=== PATIENT | male | born 1960 | race Two or more races ===

== ENCOUNTER 2017-09-27 13:18 | Inpatient (IN) | payer MEDICAID ==
[2017-09-27] MEDS ORDERED: Sodium Chloride 0.9% 10 ML Syringe FLUSH PRN (13:21)
[2017-09-27] MEDS ORDERED: Zolpidem 5 MG Tab PO PRN (13:42)
[2017-09-27] MEDS ORDERED: Potassium Chloride 10% 20 MEQ/15 ML Soln 15 ML UD Cup PO PRN (13:42)
[2017-09-27] MEDS ORDERED: Lactated Ringers 1,000 ML IV SCH ×3 (13:45→16:45)
[2017-09-27] MEDS ORDERED: Insulin Regular, Human 100 Units/ML 3 ML Vial IV ONE (14:22)
[2017-09-27] MEDS: amLODIPine 10 MG Tab PO SCH (14:31)
[2017-09-27] MEDS ORDERED: Heparin Sodium/D5W 25,000 UNITS/500 ML BAG IV SCH (16:00)
[2017-09-27] MEDS ORDERED: Heparin Sodium 5,000 Units/ML Vial IVPUSH ONE (16:05)
[2017-09-27] MEDS ORDERED: Morphine 4 MG/ML Syringe IV PRN (17:36)
[2017-09-27] MEDS ORDERED: LORazepam 2 MG/ML MDV IV PRN (17:36)
[2017-09-27] MEDS ORDERED: Labetalol 20 MG/4 ML Syringe IVPUSH PRN (17:36)
[2017-09-27] MEDS ORDERED: Nitroglycerin 0.4 MG Tab.SL SL PRN (17:36)
--- NOTE | 2017-09-27 18:15 | PCM.HP ---
H&P History of Present Illness - General Date of Service: 09/27/17 Admit Problem/Dx: Admission Diagnosis/Problem Admission Diagnosis/Problem Diabetic ketoacidosis without coma sent over from clinic after presenting for routine follow up but with symptoms prompting further evaluation. Noted to have severely elevated glucose at 900+. no prior hx of DM. ketones in urine. patient weaker and noted severe increase in thirst and urination after started a steroid burst for sudden onset urticaria. 5 day course with last day being today. resolving rash, but he did not take todays dose. hx of hep c carrier being considered for currative therapy. no etoh or drug use. denies any other medications other than his perscriptions. has not traveled in the last 3 months or had outside visitors. no change in living or work environment. no fevers or chills. no cough or congestion. no abd, flank, epigastric, chest, neck, jaw, muscle or arm pain. no falls. no headaches. no blurred vision. no diarrhea, blood/black stools, n/v, abd distension, change in color of urine or stool. no burning with urination. no wounds or sores other than an ingrown hair on his left inner thigh. no change in diet or other ill contacts. hx of right hemicolectomy a few years back for dysplastic polyps. reanastimosed. has cardiac diskinesis via echo in past via stress echo. Source of Information: Patient, Provider - Related Data Allergies/Adverse Reactions: Allergies Allergy/AdvReac Type Severity Reaction Status Date / Time No Known Allergies Allergy Verified 11/29/16 07:50 Home Medications: Home Meds Fluticasone Propionate [Flonase] 2 spray NASBOTH DAILY 06/15/16 [History] Loratadine [Claritin] 10 mg PO DAILY PRN 06/15/16 [History] Multivitamin with Minerals [Multivitamins with Minerals] 1 tab PO DAILY [History] amLODIPine [Norvasc] 10 mg PO DAILY #30 tablet 12/09/16 [Rx] Losartan [Cozaar] 50 mg PO DAILY 09/27/17 [History] Omeprazole 20 mg PO DAILY 09/27/17 [History] predniSONE [Prednisone] 20 mg PO .TAPER 09/27/17 [History] Past Medical History - Past Health History Medical/Surgical History: Denies Medical/Surgical History HEENT History: Reports: Impaired Vision Cardiovascular History: Reports: Hypertension Other Cardiovascular History: HYPERLIPIDEMIA Respiratory History: Reports: None Gastrointestinal History: Reports: Colon Polyp Genitourinary History: Reports: Acute Renal Failure Musculoskeletal History: Reports: Other (See Below) Other Musculoskeletal History: LEFT ANKLE INJURY Neurological History: Reports: None Psychiatric History: Reports: None Endocrine/Metabolic History: Reports: None Other Endocrine/Metabolic History: family hx and patient presents with elevated blood sugar Hematologic History: Reports: Anemia Immunologic History: Reports: None Oncologic (Cancer) History: Reports: None Dermatologic History: Reports: None Other Dermatologic History: recently on prednisone for torso and arms, back and sides of abdomen - Infectious Disease History Infectious Disease History: Reports: Chicken Pox, Scarlet Fever - Past Surgical History Head Surgeries/Procedures: Reports: None Cardiovascular Surgical History: Reports: None GI Surgical History: Reports: Hernia Repair/Other Other GI Surgeries/Procedures: double hernia--hernia repain, dysplasic colon-- --colon sugery Male Surgical History: Reports: None Endocrine Surgical History: Reports: None Dermatological Surgical History: Reports: None Social & Family History - Family History HEENT: Reports: None Cardiac: Reports: CAD, Heart Murmur, [place] Respiratory: Reports: None GI: Reports: None : Reports: None OBGYN: Reports: None Musculoskeletal: Reports: None Neurological: Reports: Dementia Psychiatric: Reports: None Endocrine/Metabolic: Reports: Diabetes, Type I Hematologic: Reports: None Immunologic: Reports: None Dermatologic: Reports: None Oncologic: Reports: Breast - Tobacco Use Smoking Status *Q: Former Smoker Years of Tobacco use: 30 Packs/Tins Daily: 1 Used Tobacco, but Quit: Yes Month Tobacco Last Used: june 2017 Second Hand Smoke Exposure: Yes - Caffeine Use Caffeine Use: Reports: None - Alcohol Use Days Per Week of Alcohol Use: 1 Number of Drinks Per Day: 6 Total Drinks Per Week: 6 - Recreational Drug Use Recreational Drug Use: No H&P Review of Systems - Review of Systems: Review Of Systems: ROS reveals no pertinent complaints other than HPI. Exam - Exam Exam: See Below - Vital Signs Vital Signs: Last Vital Signs Temp 98.1 F 09/27/17 13:30 Pulse 96 09/27/17 13:30 Resp 16 09/27/17 13:30 BP 142/92 H 09/27/17 14:31 Pulse Ox 98 09/27/17 13:30 Weight: 105.506 kg - Exam General: Alert, Oriented, Cooperative HEENT: EOMI, Posterior Pharynx Clear, Scleral Icterus Neck: Supple, Trachea Midline. No: Lymphadenopathy, JVD Lungs: Clear to Auscultation, Normal Respiratory Effort Cardiovascular: Regular Rate, Regular Rhythm, Normal S1, Normal S2. No: Systolic Murmur, Rubs GI/Abdominal Exam: Normal Bowel Sounds, Non-Tender, Distended. No: Rigid (Male) Exam: Other (enlarged prostate mild. no nodules. no rectal mass on CHANCE ). No: Normal Prostate, Inguinal Lymphadenopathy, Scrotal Swelling Rectal (Males) Exam: Normal Exam, Normal Rectal Tone, Heme - Stool Back Exam: Full Range of Motion. No: Muscle Spasm, Paraspinal Tenderness, Vertebral Tenderness Extremities: Non-Tender, Pedal Edema (tr). No: Mottled, Pallor Peripheral Pulses: 1+: Posterior Tibial (L), Posterior Tibial (R), Dorsalis Pedis (L), 2+: Dorsalis Pedis (R) Skin: Warm, Intact, Rash (trace urticarial blancing rash to back. no induration , petechia or purpura.) Neurological: Cranial Nerves Intact. No: Focal Deficit, Clonus Neuro Extensive - Mental Status: Oriented x3, Normal Mood/Affect - Patient Data Lab Results Last 24 hrs: Laboratory Results - last 24 hr 09/27/17 09/27/17 09/27/17 Range/Units 13:00 13:00 13:00 WBC (4.5-12.0) X10-3/uL RBC (4.30-5.75) x10(6)uL Hgb (11.5-15.5) g/dL Hct (30.0-51.3) % MCV (80-96) fL MCH (27.7-33.6) pg MCHC (32.2-35.4) g/dL RDW (11.5-15.5) % Plt Count (125-369) X10(3)uL MPV (7.4-10.4) fL Neut % (Auto) (46-82) % Lymph % (Auto) (13-37) % [place]nott % (Auto) (4-12) % Eos % (Auto) (1.0-5.0) % Baso % (Auto) (0-2) % Neut # (Auto) (1.6-8.3) # Lymph # (Auto) (0.6-5.0) # Knott # (Auto) (0.0-1.3) # Eos # (Auto) (0.0-0.8) # Baso # (Auto) (0.0-0.2) # ESR (0-15) mm/hr PT (8.7-11.1) INR (0.89-1.13) APTT 21.1 L (24.4-33.2) SECONDS ABG pH (7.35-7.45) ABG pCO2 (35-45) mmHg ABG pO2 (83-108) mmHg ABG HCO3 (22-26) mmol/L ABG O2 Saturation (96-97) % ABG Base Excess (-2-2) Bashir Test O2 Delivery Device Sodium (135-145) mmol/L Potassium (3.5-5.3) mmol/L Chloride (100-110) mmol/L Carbon Dioxide (23-29) mmol/L BUN (5-20) mg/dL Creatinine (0.6-1.3) mg/dL Est Cr Clr Drug Dosing mL/min Estimated GFR (MDRD) (>60) BUN/Creatinine Ratio (9-20) Glucose (80-116) mg/dL POC Glucose (80-116) mg/dL Hemoglobin A1c (4.0-6.0) % Calcium (8.6-10.2) mg/dL Phosphorus (3.0-4.6) mg/dL Magnesium (1.8-2.5) mg/dL Total Bilirubin (0.1-1.3) mg/dL AST (5-27) IU/L ALT (14-26) IU/L Alkaline Phosphatase (56-112) IU/L Creatine Kinase (60-160) IU/L CK-MB (CK-2) (0.2-5.0) ng/mL Troponin I (0.02-0.06) NG/ML C-Reactive Protein 2.3 H (0.0-1.0) mg/dL Total Protein (6.0-8.0) g/dL Albumin (3.5-5.2) g/dL Globulin g/dL Albumin/Globulin Ratio Amylase (28-100) U/L TSH, Ultra Sensitive (0.4-5.5) nlU/mL Urine Color (YELLOW) Urine Appearance (CLEAR) Urine pH (5.0-6.5) Ur Specific [place] (1.010-1.025) Urine Protein (NEGATIVE) mg/dL Urine Glucose (UA) (NEGATIVE) mg/dL Urine Ketones (NEGATIVE) mg/dL Urine Occult Blood (NEGATIVE) Urine Nitrite (NEGATIVE) Urine Bilirubin (NEGATIVE) Urine Urobilinogen (NEGATIVE) mg/dL Ur Leukocyte Esterase (NEGATIVE) Urine RBC (0) Urine WBC (0) Ur Squamous Epith Cells (NS,R,O) Urine Bacteria (NS) Urine Opiates Screen (NEGATIVE) Ur Oxycodone Screen (NEGATIVE) Ur Propoxyphene Screen (NEGATIVE) Ur Barbituates Screen (NEGATIVE) Ur Tricyclics Screen (NEGATIVE) Ur Phencyclidine Scrn (NEGATIVE) Ur Amphetamine Screen (NEGATIVE) Urine MDMA Screen (NEGATIVE) U Benzodiazepines Scrn (NEGATIVE) U Cocaine Metab Screen (NEGATIVE) U Marijuana (THC) Screen (NEGATIVE) Ethyl Alcohol < 0.01 (<0.01) % 09/27/17 09/27/17 09/27/17 Range/Units 13:25 13:25 13:30 WBC (4.5-12.0) X10-3/uL RBC (4.30-5.75) x10(6)uL Hgb (11.5-15.5) g/dL Hct (30.0-51.3) % MCV (80-96) fL MCH (27.7-33.6) pg MCHC (32.2-35.4) g/dL RDW (11.5-15.5) % Plt Count (125-369) X10(3)uL MPV (7.4-10.4) fL Neut % (Auto) (46-82) % Lymph % (Auto) (13-37) % [place]nott % (Auto) (4-12) % Eos % (Auto) (1.0-5.0) % Baso % (Auto) (0-2) % Neut # (Auto) (1.6-8.3) # Lymph # (Auto) (0.6-5.0) # Knott # (Auto) (0.0-1.3) # Eos # (Auto) (0.0-0.8) # Baso # (Auto) (0.0-0.2) # ESR (0-15) mm/hr PT (8.7-11.1) INR (0.89-1.13) APTT (24.4-33.2) SECONDS ABG pH 7.42 (7.35-7.45) ABG pCO2 39 (35-45) mmHg ABG pO2 72 L (83-108) mmHg ABG HCO3 25 (22-26) mmol/L ABG O2 Saturation 95 L (96-97) % ABG Base Excess 1.2 (-2-2) Bashir Test Passed O2 Delivery Device Room air Sodium (135-145) mmol/L Potassium (3.5-5.3) mmol/L Chloride (100-110) mmol/L Carbon Dioxide (23-29) mmol/L BUN (5-20) mg/dL Creatinine (0.6-1.3) mg/dL Est Cr Clr Drug Dosing mL/min Estimated GFR (MDRD) (>60) BUN/Creatinine Ratio (9-20) Glucose 697 H* D (80-116) mg/dL POC Glucose > 500 H* (80-116) mg/dL Hemoglobin A1c (4.0-6.0) % Calcium (8.6-10.2) mg/dL Phosphorus (3.0-4.6) mg/dL Magnesium (1.8-2.5) mg/dL Total Bilirubin (0.1-1.3) mg/dL AST (5-27) IU/L ALT (14-26) IU/L Alkaline Phosphatase (56-112) IU/L Creatine Kinase (60-160) IU/L CK-MB (CK-2) (0.2-5.0) ng/mL Troponin I (0.02-0.06) NG/ML C-Reactive Protein (0.0-1.0) mg/dL Total Protein (6.0-8.0) g/dL Albumin (3.5-5.2) g/dL Globulin g/dL Albumin/Globulin Ratio Amylase (28-100) U/L TSH, Ultra Sensitive (0.4-5.5) nlU/mL Urine Color (YELLOW) Urine Appearance (CLEAR) Urine pH (5.0-6.5) Ur Specific [place] (1.010-1.025) Urine Protein (NEGATIVE) mg/dL Urine Glucose (UA) (NEGATIVE) mg/dL Urine Ketones (NEGATIVE) mg/dL Urine Occult Blood (NEGATIVE) Urine Nitrite (NEGATIVE) Urine Bilirubin (NEGATIVE) Urine Urobilinogen (NEGATIVE) mg/dL Ur Leukocyte Esterase (NEGATIVE) Urine RBC (0) Urine WBC (0) Ur Squamous Epith Cells (NS,R,O) Urine Bacteria (NS) Urine Opiates Screen (NEGATIVE) Ur Oxycodone Screen (NEGATIVE) Ur Propoxyphene Screen (NEGATIVE) Ur Barbituates Screen (NEGATIVE) Ur Tricyclics Screen (NEGATIVE) Ur Phencyclidine Scrn (NEGATIVE) Ur Amphetamine Screen (NEGATIVE) Urine MDMA Screen (NEGATIVE) U Benzodiazepines Scrn (NEGATIVE) U Cocaine Metab Screen (NEGATIVE) U Marijuana (THC) Screen (NEGATIVE) Ethyl Alcohol (<0.01) % 09/27/17 09/27/17 09/27/17 Range/Units 13:30 13:30 13:30 WBC 11.0 (4.5-12.0) X10-3/uL RBC 4.50 (4.30-5.75) x10(6)uL Hgb 14.8 (11.5-15.5) g/dL Hct 41.3 (30.0-51.3) % MCV 91.7 (80-96) fL MCH 33.0 (27.7-33.6) pg MCHC 35.9 H (32.2-35.4) g/dL RDW 11.7 (11.5-15.5) % Plt Count 261 (125-369) X10(3)uL MPV 8.7 (7.4-10.4) fL Neut % (Auto) 88.0 H (46-82) % Lymph % (Auto) 7.1 L (13-37) % Knott % (Auto) 4.5 (4-12) % Eos % (Auto) 0 L (1.0-5.0) % Baso % (Auto) 0 (0-2) % Neut # (Auto) 9.7 H (1.6-8.3) # Lymph # (Auto) 0.8 (0.6-5.0) # [place]t # (Auto) 0.5 (0.0-1.3) # Eos # (Auto) 0.0 (0.0-0.8) # Baso # (Auto) 0.0 (0.0-0.2) # ESR 20 H (0-15) mm/hr PT 10.4 (8.7-11.1) INR 1.03 (0.89-1.13) APTT (24.4-33.2) SECONDS ABG pH (7.35-7.45) ABG pCO2 (35-45) mmHg ABG pO2 (83-108) mmHg ABG HCO3 (22-26) mmol/L ABG O2 Saturation (96-97) % ABG Base Excess (-2-2) Bashir Test O2 Delivery Device Sodium 124 L (135-145) mmol/L Potassium 4.0 (3.5-5.3) mmol/L Chloride 89 L* D (100-110) mmol/L Carbon Dioxide 23 (23-29) mmol/L BUN 23 H (5-20) mg/dL Creatinine 1.1 (0.6-1.3) mg/dL Est Cr Clr Drug Dosing 77.96 mL/min Estimated GFR (MDRD) > 60 (>60) BUN/Creatinine Ratio 20.9 H (9-20) Glucose TNP (80-116) mg/dL POC Glucose (80-116) mg/dL Hemoglobin A1c (4.0-6.0) % Calcium 9.2 (8.6-10.2) mg/dL Phosphorus 4.1 (3.0-4.6) mg/dL Magnesium 2.0 (1.8-2.5) mg/dL Total Bilirubin 1.8 H (0.1-1.3) mg/dL AST 46 H (5-27) IU/L ALT 67 H D (14-26) IU/L Alkaline Phosphatase 126 H (56-112) IU/L Creatine Kinase 804 H* (60-160) IU/L CK-MB (CK-2) 4.0 (0.2-5.0) ng/mL Troponin I (0.02-0.06) NG/ML C-Reactive Protein (0.0-1.0) mg/dL Total Protein 8.5 H (6.0-8.0) g/dL Albumin 4.8 (3.5-5.2) g/dL Globulin 3.7 g/dL Albumin/Globulin Ratio 1.3 Amylase 15 L (28-100) U/L TSH, Ultra Sensitive (0.4-5.5) nlU/mL Urine Color (YELLOW) Urine Appearance (CLEAR) Urine pH (5.0-6.5) Ur Specific [place] (1.010-1.025) Urine Protein (NEGATIVE) mg/dL Urine Glucose (UA) (NEGATIVE) mg/dL Urine Ketones (NEGATIVE) mg/dL Urine Occult Blood (NEGATIVE) Urine Nitrite (NEGATIVE) Urine Bilirubin (NEGATIVE) Urine Urobilinogen (NEGATIVE) mg/dL Ur Leukocyte Esterase (NEGATIVE) Urine RBC (0) Urine WBC (0) Ur Squamous Epith Cells (NS,R,O) Urine Bacteria (NS) Urine Opiates Screen (NEGATIVE) Ur Oxycodone Screen (NEGATIVE) Ur Propoxyphene Screen (NEGATIVE) Ur Barbituates Screen (NEGATIVE) Ur Tricyclics Screen (NEGATIVE) Ur Phencyclidine Scrn (NEGATIVE) Ur Amphetamine Screen (NEGATIVE) Urine MDMA Screen (NEGATIVE) U Benzodiazepines Scrn (NEGATIVE) U Cocaine Metab Screen (NEGATIVE) U Marijuana (THC) Screen (NEGATIVE) Ethyl Alcohol (<0.01) % 09/27/17 09/27/17 09/27/17 Range/Units 13:30 13:30 14:06 WBC (4.5-12.0) X10-3/uL RBC (4.30-5.75) x10(6)uL Hgb (11.5-15.5) g/dL Hct (30.0-51.3) % MCV (80-96) fL MCH (27.7-33.6) pg MCHC (32.2-35.4) g/dL RDW (11.5-15.5) % Plt Count (125-369) X10(3)uL MPV (7.4-10.4) fL Neut % (Auto) (46-82) % Lymph % (Auto) (13-37) % [place] % (Auto) (4-12) % Eos % (Auto) (1.0-5.0) % Baso % (Auto) (0-2) % Neut # (Auto) (1.6-8.3) # Lymph # (Auto) (0.6-5.0) # [place] # (Auto) (0.0-1.3) # Eos # (Auto) (0.0-0.8) # Baso # (Auto) (0.0-0.2) # ESR (0-15) mm/hr PT (8.7-11.1) INR (0.89-1.13) APTT (24.4-33.2) SECONDS ABG pH (7.35-7.45) ABG pCO2 (35-45) mmHg ABG pO2 (83-108) mmHg ABG HCO3 (22-26) mmol/L ABG O2 Saturation (96-97) % ABG Base Excess (-2-2) Bashir Test O2 Delivery Device Sodium (135-145) mmol/L Potassium (3.5-5.3) mmol/L Chloride (100-110) mmol/L Carbon Dioxide (23-29) mmol/L BUN (5-20) mg/dL Creatinine (0.6-1.3) mg/dL Est Cr Clr Drug Dosing mL/min Estimated GFR (MDRD) (>60) BUN/Creatinine Ratio (9-20) Glucose (80-116) mg/dL POC Glucose (80-116) mg/dL Hemoglobin A1c 11.3 H (4.0-6.0) % Calcium (8.6-10.2) mg/dL Phosphorus (3.0-4.6) mg/dL Magnesium (1.8-2.5) mg/dL Total Bilirubin (0.1-1.3) mg/dL AST (5-27) IU/L ALT (14-26) IU/L Alkaline Phosphatase (56-112) IU/L Creatine Kinase (60-160) IU/L CK-MB (CK-2) (0.2-5.0) ng/mL Troponin I 1.07 H* (0.02-0.06) NG/ML C-Reactive Protein (0.0-1.0) mg/dL Total Protein (6.0-8.0) g/dL Albumin (3.5-5.2) g/dL Globulin g/dL Albumin/Globulin Ratio Amylase (28-100) U/L TSH, Ultra Sensitive 1.07 (0.4-5.5) nlU/mL Urine Color (YELLOW) Urine Appearance (CLEAR) Urine pH (5.0-6.5) Ur Specific [place] (1.010-1.025) Urine Protein (NEGATIVE) mg/dL Urine Glucose (UA) (NEGATIVE) mg/dL Urine Ketones (NEGATIVE) mg/dL Urine Occult Blood (NEGATIVE) Urine Nitrite (NEGATIVE) Urine Bilirubin (NEGATIVE) Urine Urobilinogen (NEGATIVE) mg/dL Ur Leukocyte Esterase (NEGATIVE) Urine RBC (0) Urine WBC (0) Ur Squamous Epith Cells (NS,R,O) Urine Bacteria (NS) Urine Opiates Screen (NEGATIVE) Ur Oxycodone Screen (NEGATIVE) Ur Propoxyphene Screen (NEGATIVE) Ur Barbituates Screen (NEGATIVE) Ur Tricyclics Screen (NEGATIVE) Ur Phencyclidine Scrn (NEGATIVE) Ur Amphetamine Screen (NEGATIVE) Urine MDMA Screen (NEGATIVE) U Benzodiazepines Scrn (NEGATIVE) U Cocaine Metab Screen (NEGATIVE) U Marijuana (THC) Screen (NEGATIVE) Ethyl Alcohol (<0.01) % 09/27/17 09/27/17 09/27/17 Range/Units 14:10 14:10 15:00 WBC (4.5-12.0) X10-3/uL RBC (4.30-5.75) x10(6)uL Hgb (11.5-15.5) g/dL Hct (30.0-51.3) % MCV (80-96) fL MCH (27.7-33.6) pg MCHC (32.2-35.4) g/dL RDW (11.5-15.5) % Plt Count (125-369) X10(3)uL MPV (7.4-10.4) fL Neut % (Auto) (46-82) % Lymph % (Auto) (13-37) % [place] % (Auto) (4-12) % Eos % (Auto) (1.0-5.0) % Baso % (Auto) (0-2) % Neut # (Auto) (1.6-8.3) # Lymph # (Auto) (0.6-5.0) # [place] # (Auto) (0.0-1.3) # Eos # (Auto) (0.0-0.8) # Baso # (Auto) (0.0-0.2) # ESR (0-15) mm/hr PT (8.7-11.1) INR (0.89-1.13) APTT (24.4-33.2) SECONDS ABG pH (7.35-7.45) ABG pCO2 (35-45) mmHg ABG pO2 (83-108) mmHg ABG HCO3 (22-26) mmol/L ABG O2 Saturation (96-97) % ABG Base Excess (-2-2) Bashir Test O2 Delivery Device Sodium (135-145) mmol/L Potassium 3.6 (3.5-5.3) mmol/L Chloride (100-110) mmol/L Carbon Dioxide (23-29) mmol/L BUN (5-20) mg/dL Creatinine (0.6-1.3) mg/dL Est Cr Clr Drug Dosing mL/min Estimated GFR (MDRD) (>60) BUN/Creatinine Ratio (9-20) Glucose 565 H* D (80-116) mg/dL POC Glucose (80-116) mg/dL Hemoglobin A1c (4.0-6.0) % Calcium (8.6-10.2) mg/dL Phosphorus (3.0-4.6) mg/dL Magnesium (1.8-2.5) mg/dL Total Bilirubin (0.1-1.3) mg/dL AST (5-27) IU/L ALT (14-26) IU/L Alkaline Phosphatase (56-112) IU/L Creatine Kinase (60-160) IU/L CK-MB (CK-2) (0.2-5.0) ng/mL Troponin I (0.02-0.06) NG/ML C-Reactive Protein (0.0-1.0) mg/dL Total Protein (6.0-8.0) g/dL Albumin (3.5-5.2) g/dL Globulin g/dL Albumin/Globulin Ratio Amylase (28-100) U/L TSH, Ultra Sensitive (0.4-5.5) nlU/mL Urine Color Yellow (YELLOW) Urine Appearance Clear (CLEAR) Urine pH 5.0 (5.0-6.5) Ur Specific [place] 1.010 (1.010-1.025) Urine Protein Negative (NEGATIVE) mg/dL Urine Glucose (UA) >1000 H (NEGATIVE) mg/dL Urine Ketones 15 H (NEGATIVE) mg/dL Urine Occult Blood Moderate H (NEGATIVE) Urine Nitrite Negative (NEGATIVE) Urine Bilirubin Negative (NEGATIVE) Urine Urobilinogen Normal (NEGATIVE) mg/dL Ur Leukocyte Esterase Negative (NEGATIVE) Urine RBC 10-20 H (0) Urine WBC 0-5 (0) Ur Squamous Epith Cells Few H (NS,R,O) Urine Bacteria Moderate H (NS) Urine Opiates Screen Negative (NEGATIVE) Ur Oxycodone Screen Negative (NEGATIVE) Ur Propoxyphene Screen Negative (NEGATIVE) Ur Barbituates Screen Negative (NEGATIVE) Ur Tricyclics Screen Negative (NEGATIVE) Ur Phencyclidine Scrn Negative (NEGATIVE) Ur Amphetamine Screen Negative (NEGATIVE) Urine MDMA Screen Negative (NEGATIVE) U Benzodiazepines Scrn Negative (NEGATIVE) U Cocaine Metab Screen Negative (NEGATIVE) U Marijuana (THC) Screen Negative (NEGATIVE) Ethyl Alcohol (<0.01) % 09/27/17 09/27/17 09/27/17 Range/Units 15:04 15:40 15:40 WBC (4.5-12.0) X10-3/uL RBC (4.30-5.75) x10(6)uL Hgb (11.5-15.5) g/dL Hct (30.0-51.3) % MCV (80-96) fL MCH (27.7-33.6) pg MCHC (32.2-35.4) g/dL RDW (11.5-15.5) % Plt Count (125-369) X10(3)uL MPV (7.4-10.4) fL Neut % (Auto) (46-82) % Lymph % (Auto) (13-37) % [place] % (Auto) (4-12) % Eos % (Auto) (1.0-5.0) % Baso % (Auto) (0-2) % Neut # (Auto) (1.6-8.3) # Lymph # (Auto) (0.6-5.0) # [place] # (Auto) (0.0-1.3) # Eos # (Auto) (0.0-0.8) # Baso # (Auto) (0.0-0.2) # ESR (0-15) mm/hr PT (8.7-11.1) INR (0.89-1.13) APTT (24.4-33.2) SECONDS ABG pH (7.35-7.45) ABG pCO2 (35-45) mmHg ABG pO2 (83-108) mmHg ABG HCO3 (22-26) mmol/L ABG O2 Saturation (96-97) % ABG Base Excess (-2-2) Bashir Test O2 Delivery Device Sodium 131 L (135-145) mmol/L Potassium 3.8 (3.5-5.3) mmol/L Chloride 96 L D (100-110) mmol/L Carbon Dioxide 26 (23-29) mmol/L BUN 19 (5-20) mg/dL Creatinine 1.0 (0.6-1.3) mg/dL Est Cr Clr Drug Dosing 85.76 mL/min Estimated GFR (MDRD) > 60 (>60) BUN/Creatinine Ratio 19.0 (9-20) Glucose 351 H D (80-116) mg/dL POC Glucose > 500 H* (80-116) mg/dL Hemoglobin A1c (4.0-6.0) % Calcium 9.2 (8.6-10.2) mg/dL Phosphorus (3.0-4.6) mg/dL Magnesium (1.8-2.5) mg/dL Total Bilirubin (0.1-1.3) mg/dL AST (5-27) IU/L ALT (14-26) IU/L Alkaline Phosphatase (56-112) IU/L Creatine Kinase (60-160) IU/L CK-MB (CK-2) (0.2-5.0) ng/mL Troponin I 0.02 (0.02-0.06) NG/ML C-Reactive Protein (0.0-1.0) mg/dL Total Protein (6.0-8.0) g/dL Albumin (3.5-5.2) g/dL Globulin g/dL Albumin/Globulin Ratio Amylase (28-100) U/L TSH, Ultra Sensitive (0.4-5.5) nlU/mL Urine Color (YELLOW) Urine Appearance (CLEAR) Urine pH (5.0-6.5) Ur Specific [place] (1.010-1.025) Urine Protein (NEGATIVE) mg/dL Urine Glucose (UA) (NEGATIVE) mg/dL Urine Ketones (NEGATIVE) mg/dL Urine Occult Blood (NEGATIVE) Urine Nitrite (NEGATIVE) Urine Bilirubin (NEGATIVE) Urine Urobilinogen (NEGATIVE) mg/dL Ur Leukocyte Esterase (NEGATIVE) Urine RBC (0) Urine WBC (0) Ur Squamous Epith Cells (NS,R,O) Urine Bacteria (NS) Urine Opiates Screen (NEGATIVE) Ur Oxycodone Screen (NEGATIVE) Ur Propoxyphene Screen (NEGATIVE) Ur Barbituates Screen (NEGATIVE) Ur Tricyclics Screen (NEGATIVE) Ur Phencyclidine Scrn (NEGATIVE) Ur Amphetamine Screen (NEGATIVE) Urine MDMA Screen (NEGATIVE) U Benzodiazepines Scrn (NEGATIVE) U Cocaine Metab Screen (NEGATIVE) U Marijuana (THC) Screen (NEGATIVE) Ethyl Alcohol (<0.01) % 09/27/17 09/27/17 09/27/17 Range/Units 16:00 16:01 16:54 WBC (4.5-12.0) X10-3/uL RBC (4.30-5.75) x10(6)uL Hgb (11.5-15.5) g/dL Hct (30.0-51.3) % MCV (80-96) fL MCH (27.7-33.6) pg MCHC (32.2-35.4) g/dL RDW (11.5-15.5) % Plt Count (125-369) X10(3)uL MPV (7.4-10.4) fL Neut % (Auto) (46-82) % Lymph % (Auto) (13-37) % [place] % (Auto) (4-12) % Eos % (Auto) (1.0-5.0) % Baso % (Auto) (0-2) % Neut # (Auto) (1.6-8.3) # Lymph # (Auto) (0.6-5.0) # Knott # (Auto) (0.0-1.3) # Eos # (Auto) (0.0-0.8) # Baso # (Auto) (0.0-0.2) # ESR (0-15) mm/hr PT (8.7-11.1) INR (0.89-1.13) APTT (24.4-33.2) SECONDS ABG pH (7.35-7.45) ABG pCO2 (35-45) mmHg ABG pO2 (83-108) mmHg ABG HCO3 (22-26) mmol/L ABG O2 Saturation (96-97) % ABG Base Excess (-2-2) Bashir Test O2 Delivery Device Sodium (135-145) mmol/L Potassium 3.9 (3.5-5.3) mmol/L Chloride (100-110) mmol/L Carbon Dioxide (23-29) mmol/L BUN (5-20) mg/dL Creatinine (0.6-1.3) mg/dL Est Cr Clr Drug Dosing mL/min Estimated GFR (MDRD) (>60) BUN/Creatinine Ratio (9-20) Glucose 438 H* D (80-116) mg/dL POC Glucose 406 H* D 331 H (80-116) mg/dL Hemoglobin A1c (4.0-6.0) % Calcium (8.6-10.2) mg/dL Phosphorus (3.0-4.6) mg/dL Magnesium (1.8-2.5) mg/dL Total Bilirubin (0.1-1.3) mg/dL AST (5-27) IU/L ALT (14-26) IU/L Alkaline Phosphatase (56-112) IU/L Creatine Kinase (60-160) IU/L CK-MB (CK-2) (0.2-5.0) ng/mL Troponin I (0.02-0.06) NG/ML C-Reactive Protein (0.0-1.0) mg/dL Total Protein (6.0-8.0) g/dL Albumin (3.5-5.2) g/dL Globulin g/dL Albumin/Globulin Ratio Amylase (28-100) U/L TSH, Ultra Sensitive (0.4-5.5) nlU/mL Urine Color (YELLOW) Urine Appearance (CLEAR) Urine pH (5.0-6.5) Ur Specific [place] (1.010-1.025) Urine Protein (NEGATIVE) mg/dL Urine Glucose (UA) (NEGATIVE) mg/dL Urine Ketones (NEGATIVE) mg/dL Urine Occult Blood (NEGATIVE) Urine Nitrite (NEGATIVE) Urine Bilirubin (NEGATIVE) Urine Urobilinogen (NEGATIVE) mg/dL Ur Leukocyte Esterase (NEGATIVE) Urine RBC (0) Urine WBC (0) Ur Squamous Epith Cells (NS,R,O) Urine Bacteria (NS) Urine Opiates Screen (NEGATIVE) Ur Oxycodone Screen (NEGATIVE) Ur Propoxyphene Screen (NEGATIVE) Ur Barbituates Screen (NEGATIVE) Ur Tricyclics Screen (NEGATIVE) Ur Phencyclidine Scrn (NEGATIVE) Ur Amphetamine Screen (NEGATIVE) Urine MDMA Screen (NEGATIVE) U Benzodiazepines Scrn (NEGATIVE) U Cocaine Metab Screen (NEGATIVE) U Marijuana (THC) Screen (NEGATIVE) Ethyl Alcohol (<0.01) % 09/27/17 Range/Units 18:05 WBC (4.5-12.0) X10-3/uL RBC (4.30-5.75) x10(6)uL Hgb (11.5-15.5) g/dL Hct (30.0-51.3) % MCV (80-96) fL MCH (27.7-33.6) pg MCHC (32.2-35.4) g/dL RDW (11.5-15.5) % Plt Count (125-369) X10(3)uL MPV (7.4-10.4) fL Neut % (Auto) (46-82) % Lymph % (Auto) (13-37) % [place] % (Auto) (4-12) % Eos % (Auto) (1.0-5.0) % Baso % (Auto) (0-2) % Neut # (Auto) (1.6-8.3) # Lymph # (Auto) (0.6-5.0) # [place]t # (Auto) (0.0-1.3) # Eos # (Auto) (0.0-0.8) # Baso # (Auto) (0.0-0.2) # ESR (0-15) mm/hr PT (8.7-11.1) INR (0.89-1.13) APTT (24.4-33.2) SECONDS ABG pH (7.35-7.45) ABG pCO2 (35-45) mmHg ABG pO2 (83-108) mmHg ABG HCO3 (22-26) mmol/L ABG O2 Saturation (96-97) % ABG Base Excess (-2-2) Bashir Test O2 Delivery Device Sodium (135-145) mmol/L Potassium (3.5-5.3) mmol/L Chloride (100-110) mmol/L Carbon Dioxide (23-29) mmol/L BUN (5-20) mg/dL Creatinine (0.6-1.3) mg/dL Est Cr Clr Drug Dosing mL/min Estimated GFR (MDRD) (>60) BUN/Creatinine Ratio (9-20) Glucose (80-116) mg/dL POC Glucose 310 H (80-116) mg/dL Hemoglobin A1c (4.0-6.0) % Calcium (8.6-10.2) mg/dL Phosphorus (3.0-4.6) mg/dL Magnesium (1.8-2.5) mg/dL Total Bilirubin (0.1-1.3) mg/dL AST (5-27) IU/L ALT (14-26) IU/L Alkaline Phosphatase (56-112) IU/L Creatine Kinase (60-160) IU/L CK-MB (CK-2) (0.2-5.0) ng/mL Troponin I (0.02-0.06) NG/ML C-Reactive Protein (0.0-1.0) mg/dL Total Protein (6.0-8.0) g/dL Albumin (3.5-5.2) g/dL Globulin g/dL Albumin/Globulin Ratio Amylase (28-100) U/L TSH, Ultra Sensitive (0.4-5.5) nlU/mL Urine Color (YELLOW) Urine Appearance (CLEAR) Urine pH (5.0-6.5) Ur Specific [place] (1.010-1.025) Urine Protein (NEGATIVE) mg/dL Urine Glucose (UA) (NEGATIVE) mg/dL Urine Ketones (NEGATIVE) mg/dL Urine Occult Blood (NEGATIVE) Urine Nitrite (NEGATIVE) Urine Bilirubin (NEGATIVE) Urine Urobilinogen (NEGATIVE) mg/dL Ur Leukocyte Esterase (NEGATIVE) Urine RBC (0) Urine WBC (0) Ur Squamous Epith Cells (NS,R,O) Urine Bacteria (NS) Urine Opiates Screen (NEGATIVE) Ur Oxycodone Screen (NEGATIVE) Ur Propoxyphene Screen (NEGATIVE) Ur Barbituates Screen (NEGATIVE) Ur Tricyclics Screen (NEGATIVE) Ur Phencyclidine Scrn (NEGATIVE) Ur Amphetamine Screen (NEGATIVE) Urine MDMA Screen (NEGATIVE) U Benzodiazepines Scrn (NEGATIVE) U Cocaine Metab Screen (NEGATIVE) U Marijuana (THC) Screen (NEGATIVE) Ethyl Alcohol (<0.01) % Result Diagrams: 09/27/17 13:30 09/27/17 16:00 Ferdinand Results Last 24 hrs: Microbiology 09/27/17 16:15 Stool Occult Blood (FERDINAND) - Final Stool / Feces NEGATIVE OCCULT BLOOD EKG INTERPRETATION EKG Date: 09/27/17 Time: 13:53 Rhythm: NSR Rate (Beats/Min): 92 [place]: RAD-Right [place] Deviation P-Wave: Present QRS: Normal ST-T: Normal QT: Normal Comparison: NA - No Prior EKG *Q Meaningful Use (ADM) - VTE *Q VTE Criteria *Q: - Stroke *Q Stroke Criteria *Q: - AMI *Q AMI Criteria *Q: Statin Contraindications AMI *Q: Treatment Not Tolerated (liver disease) - Problem List (1) DKA (diabetic ketoacidoses) SNOMED Code(s): 596731709 ICD Code: E13.10 - OTH DIABETES MELLITUS WITH KETOACIDOSIS WITHOUT COMA Status: Acute Current Visit: Yes (2) Elevated troponin I measurement SNOMED Code(s): 509865099 ICD Code: R74.8 - ABNORMAL LEVELS OF OTHER SERUM ENZYMES Status: Acute Current Visit: Yes (3) Elevated CK Status: Acute Current Visit: Yes (4) Dilutional hyponatremia SNOMED Code(s): 088788993 ICD Code: E87.1 - HYPO-OSMOLALITY AND HYPONATREMIA Status: Acute Current Visit: Yes (5) Chronic hepatitis C with cirrhosis SNOMED Code(s): 364563410942 ICD Code: B18.2 - CHRONIC VIRAL HEPATITIS C; K74.60 - UNSPECIFIED CIRRHOSIS OF LIVER Status: Acute Current Visit: Yes (6) HTN, goal below 130/80 SNOMED Code(s): 77741662 ICD Code: I10 - ESSENTIAL (PRIMARY) HYPERTENSION Status: Acute Current Visit: Yes (7) Heart disease Status: Acute Current Visit: Yes (8) S/P right hemicolectomy SNOMED Code(s): 243453394 ICD Code: Z90.49 - ACQUIRED ABSENCE OF OTHER SPECIFIED PARTS OF DIGESTIVE TRACT Status: Chronic Current Visit: Yes Problem Details: Problem List Initiated/Reviewed/Updated: Yes Orders Last 24hrs: Active Orders 24 hr Category Date Time Status Patient Status [ADT] Routine ADT 09/27/17 13:15 Active Bedrest Bathroom Privileges [RC] ASDIRECTED Care 09/27/17 13:42 Active Blood Glucose Check, Bedside [RC] ONETIME Care 09/27/17 13:15 Active Blood Glucose Check, Bedside [RC] Q1H Care 09/27/17 14:00 Active Cardiac Education [RC] Click to Edit Care 09/27/17 17:37 Ordered Cardiac Education [RC] Click to Edit Care 09/27/17 17:37 Ordered Cardiac Monitoring [RC] CONTINUOUS Care 09/27/17 13:46 Active Communication Order [RC] Q2HR Care 09/27/17 17:59 Ordered Diabetes Education [RC] Click to Edit Care 09/27/17 13:44 Active EKG Documentation Completion [RC] ASDIRECTED Care 09/27/17 13:51 Active EKG Documentation Completion [RC] ASDIRECTED Care 09/27/17 17:41 Ordered Height and Weight [RC] DAILY Care 09/27/17 13:42 Active Intake and Output [RC] Q1H Care 09/27/17 13:45 Active Notify Provider Laboratory Res [RC] ASDIRECTED Care 09/27/17 13:54 Active Notify Provider Laboratory Res [RC] ASDIRECTED Care 09/27/17 13:55 Active Notify Provider Laboratory Res [RC] ASDIRECTED Care 09/27/17 13:55 Active Notify Provider Vital Signs [RC] ASDIRECTED Care 09/27/17 13:46 Active Oxygen Therapy [RC] PRN Care 09/27/17 13:44 Active VTE/DVT Education [RC] Per Unit Routine Care 09/27/17 13:44 Active Vital Signs [RC] Q1H Care 09/27/17 13:42 Active Vital Signs [RC] Q1H Care 09/27/17 13:44 Active Clear Liquid Diet [DIET] Diet 09/27/17 Dinner Ordered Abdomen Ltd [US] Routine Exams 09/27/17 15:46 Ordered Chest 2V [CR] Routine Exams 09/27/17 15:46 Taken Chest Abdomen Pelvis w Cont [CT] Routine Exams 09/28/17 08:00 Ordered Echo Comp wo Cont [US] Routine Exams 09/28/17 08:00 Ordered AMMONIA [REF] Routine Lab 09/27/17 15:30 Received CORTISOL,AM [REF] Routine Lab 09/28/17 05:00 Ordered CULTURE BLOOD [BC] Urgent Lab 09/27/17 14:06 Ordered CULTURE BLOOD [BC] Urgent Lab 09/27/17 14:06 Ordered CULTURE URINE [RM] Routine Lab 09/27/17 14:53 Uncollected MAGNESIUM [CHEM] Q Lab 09/27/17 20:00 Ordered MAGNESIUM [CHEM] Q Lab 09/28/17 02:00 Ordered MAGNESIUM [CHEM] Q Lab 09/28/17 08:00 Ordered MAGNESIUM [CHEM] Q Lab 09/28/17 14:00 Ordered PHOSPHORUS [CHEM] [facility] 09/27/17 20:00 Ordered PHOSPHORUS [CHEM] [facility] 09/28/17 02:00 Ordered PHOSPHORUS [CHEM] [facility] 09/28/17 08:00 Ordered PHOSPHORUS [CHEM] [facility] 09/28/17 14:00 Ordered POTASSIUM,K [CHEM] [facility] Lab 09/27/17 19:00 Ordered POTASSIUM,K [CHEM] [facility] Lab 09/27/17 21:00 Ordered POTASSIUM,K [CHEM] [facility] Lab 09/27/17 23:00 Ordered POTASSIUM,K [CHEM] [facility] Lab 09/27/17 20:00 Ordered POTASSIUM,K [CHEM] [facility] Lab 09/27/17 22:00 Ordered POTASSIUM,K [CHEM] [facility] Lab 09/28/17 00:00 Ordered POTASSIUM,K [CHEM] [facility] Lab 09/28/17 02:00 Ordered POTASSIUM,K [CHEM] [facility] Lab 09/28/17 04:00 Ordered POTASSIUM,K [CHEM] [facility] Lab 09/28/17 06:00 Ordered POTASSIUM,K [CHEM] [facility] Lab 09/28/17 08:00 Ordered POTASSIUM,K [CHEM] [facility] Lab 09/28/17 10:00 Ordered PTT,PARTIAL THROMBOPLSTIN TIME [COAG] Q Lab 09/27/17 22:00 Ordered PTT,PARTIAL THROMBOPLSTIN TIME [COAG] Q Lab 09/28/17 04:00 Ordered PTT,PARTIAL THROMBOPLSTIN TIME [COAG] Q Lab 09/28/17 10:00 Ordered PTT,PARTIAL THROMBOPLSTIN TIME [COAG] Q Lab 09/28/17 16:00 Ordered PTT,PARTIAL THROMBOPLSTIN TIME [COAG] Q6H Lab 09/28/17 22:00 Ordered PTT,PARTIAL THROMBOPLSTIN TIME [COAG] Q6H Lab 09/29/17 04:00 Ordered TROPONIN I [CHEM] Q4H Lab 09/27/17 22:00 Ordered Carvedilol [Coreg] Med 09/27/17 21:00 Ordered 3.125 mg PO BID Heparin Sodium/D5W [Heparin 25,000 Units in D5W 500 ML] Med 09/27/17 16:00 Active 25,000 units in 500 ml IV TITRATE Insulin Regular, Human [HumuLIN R] 100 unit Med 09/27/17 14:30 Active Sodium Chloride 0.9% [Normal Saline] 99 ml IV TITRATE LORazepam [Ativan] Med 09/27/17 17:36 Ordered 1 mg IV Q6H PRN Labetalol [Normodyne] Med 09/27/17 17:36 Ordered 10 mg IVPUSH Q10M PRN Lactated Ringers [Ringers, Lactated] 1,000 ml Med 09/27/17 16:45 Active IV ASDIRECTED Losartan [Cozaar] Med 09/28/17 09:00 Ordered 50 mg PO DAILY Morphine Med 09/27/17 17:36 Ordered 4 mg IV Q10M PRN Nitroglycerin [Nitrostat] Med 09/27/17 17:36 Ordered 0.4 mg SL Q5M PRN Pantoprazole [ProTONIX] Med 09/28/17 09:00 Ordered 40 mg PO DAILY Potassium Chloride [Potassium Chloride Solution] Med 09/27/17 13:42 Active 20 meq PO NOW PRN Sodium Chloride 0.9% [Saline Flush] Med 09/27/17 13:21 Active 10 ml FLUSH ASDIRECTED PRN Zolpidem [Ambien] Med 09/27/17 13:42 Active 5 mg PO BEDTIME PRN amLODIPine [Norvasc] Med 09/27/17 14:15 Active 10 mg PO DAILY Aspirin Contraindications AMI [AST] Per Unit Routine Oth 09/27/17 17:37 Ordered Blood Culture x2 Reflex Set [OM.PC] Urgent Oth 09/27/17 14:05 Ordered CHF Questionnaire [COMM] Routine Oth 09/27/17 17:37 Ordered Medication Continuation Instructions [OM.PC] ASDIRECTED Oth 09/27/17 14:00 Ordered Medication Discontinuation Instructions [OM.PC] Oth 09/27/17 14:00 Ordered ASDIRECTED Saline Lock Insert [OM.PC] Routine Oth 09/27/17 13:15 Ordered Sequential Compression Device [OM.PC] Per Unit Routine Oth 09/27/17 13:47 Ordered Code Status [Resuscitation Status] Routine Resus Stat 09/27/17 13:22 Ordered EKG 12 Lead [EK] Routine Ther 09/27/17 13:42 Ordered EKG 12 Lead [EK] Urgent Ther 09/27/17 18:00 Ordered Medication Orders Amlodipine Besylate (Norvasc) 10 mg PO DAILY RAFI Last Admin: 09/27/17 14:31 Dose: 10 mg Carvedilol (Coreg) 3.125 mg PO BID RAFI Insulin Human Regular 100 unit (/ Sodium Chloride) 100 mls @ 5.27 mls/hr IV TITRATE RAFI; 0.05 UNITS/KG/HR PRN Reason: Protocol Last Titration: 09/27/17 16:13 Dose: 3.84 units/kg/hr, 406 mls/hr Admin: 09/27/17 14:43 Dose: 0.05 units/kg/hr, 5.27 mls/hr Heparin Sodium/Dextrose (Heparin 25,000 Units In D5w 500 Ml) 25,000 units in 500 mls @ 20.003 mls/hr IV TITRATE RAFI; 9.48 UNITS/KG/HR PRN Reason: Protocol Last Admin: 09/27/17 16:29 Dose: 9.48 units/kg/hr, 20.003 mls/hr Lactated Ringer's (Ringers, Lactated) 1,000 mls @ 500 mls/hr IV ASDIRECTED RAFI Stop: 09/27/17 18:44 Labetalol HCl (Normodyne) 10 mg IVPUSH Q10M PRN; Protocol PRN Reason: Hypertension Lorazepam (Ativan) 1 mg IV Q6H PRN PRN Reason: Anxiety Losartan Potassium (Cozaar) 50 mg PO DAILY RAFI Morphine Sulfate (Morphine) 4 mg IV Q10M PRN PRN Reason: Chest Pain Nitroglycerin (Nitrostat) 0.4 mg SL Q5M PRN PRN Reason: Chest Pain Pantoprazole Sodium (Protonix) 40 mg PO DAILY RAFI Potassium Chloride (Potassium Chloride Solution) 20 meq PO NOW PRN PRN Reason: Hypokalemia Last Admin: 09/27/17 15:58 Dose: 20 meq Sodium Chloride (Saline Flush) 10 ml FLUSH ASDIRECTED PRN PRN Reason: Keep Vein Open Last Admin: 09/27/17 16:31 Dose: 10 ml Zolpidem Tartrate (Ambien) 5 mg PO BEDTIME PRN PRN Reason: Sleep Assessment/Plan Comment:: complicated picture. numerous lab abnormalities and co-morbidities. icu status. ekg without acute or subacute findings. trop and ck up. cover with nstemi protocol. denies symptoms. hemo-occult negative. serial trops and ekgs ordered. echo tomorrow. cxr and abdomal US. tonight. CT chest/abd/pelvis with contrast AM. presents also with dka with bs >900 mg/dL, HgA1c 11+. This is new. started on LR boluses for volume replacement, insulin drip with serial labs and electrolyte replacement.
[2017-09-27] MEDS: Lactated Ringers 1,000 ML IV SCH ×2 (19:10→23:04)
[2017-09-27] MEDS: Potassium Chloride 10% 20 MEQ/15 ML Soln 15 ML UD Cup PO PRN ×2 (19:36→22:40)
[2017-09-27] MEDS ORDERED: Carvedilol 3.125 MG Tab PO SCH (21:00)
[2017-09-28] MEDS ORDERED: Insulin Aspart 100 Units/ML 3 ML Pen SUBCUT ONE (01:28)
[2017-09-28] MEDS: Potassium Chloride 10% 20 MEQ/15 ML Soln 15 ML UD Cup PO PRN ×2 (02:38→07:35)
[2017-09-28] MEDS: Lactated Ringers 1,000 ML IV SCH ×2 (03:03→08:55)
--- NOTE | 2017-09-28 08:57 | PCM.PN ---
- General Info Date of Service: 09/28/17 Subjective Update: 56-year-old male admitted yesterday because of a high blood sugar. Initially thought to be 2 diabetes due to acidosis. This morning he complains of no vomiting or abdominal pain. He denies any chest pain or shortness of breath. Is previously healthy with exception of hypertension on recent [employer] day[employer]. Light his sugars have improved to 123 morning on 5 units Insulin - Review of Systems General: Reports: No Symptoms HEENT: Reports: No Symptoms Pulmonary: Reports: No Symptoms Cardiovascular: Reports: No Symptoms Gastrointestinal: Reports: No Symptoms Genitourinary: Reports: No Symptoms Musculoskeletal: Reports: No Symptoms Skin: Reports: No Symptoms Neurological: Reports: No Symptoms Psychiatric: Reports: No Symptoms - Patient Data Vitals - Most Recent: Last Vital Signs Temp 97.6 F 09/28/17 06:00 Pulse 76 09/28/17 06:00 Resp 17 09/28/17 06:00 BP 136/91 H 09/28/17 06:00 Pulse Ox 96 09/28/17 06:00 Weight - Most Recent: 113.443 kg I&O - Last 24 Hours: Intake & Output 09/27/17 09/28/17 09/28/17 22:59 06:59 14:59 Intake Total 4158 2132 12 Output Total 1025 375 Balance 3133 1757 12 Lab Results Last 24 Hours: Laboratory Results - last 24 hr 09/27/17 09/27/17 09/27/17 Range/Units 13:00 13:00 13:00 WBC (4.5-12.0) X10-3/uL RBC (4.30-5.75) x10(6)uL Hgb (11.5-15.5) g/dL Hct (30.0-51.3) % MCV (80-96) fL MCH (27.7-33.6) pg MCHC (32.2-35.4) g/dL RDW (11.5-15.5) % Plt Count (125-369) X10(3)uL MPV (7.4-10.4) fL Neut % (Auto) (46-82) % Lymph % (Auto) (13-37) % [place] % (Auto) (4-12) % Eos % (Auto) (1.0-5.0) % Baso % (Auto) (0-2) % Neut # (Auto) (1.6-8.3) # Lymph # (Auto) (0.6-5.0) # [place] # (Auto) (0.0-1.3) # Eos # (Auto) (0.0-0.8) # Baso # (Auto) (0.0-0.2) # ESR (0-15) mm/hr PT (8.7-11.1) INR (0.89-1.13) APTT 21.1 L (24.4-33.2) SECONDS ABG pH (7.35-7.45) ABG pCO2 (35-45) mmHg ABG pO2 (83-108) mmHg ABG HCO3 (22-26) mmol/L ABG O2 Saturation (96-97) % ABG Base Excess (-2-2) Bashir Test O2 Delivery Device Sodium (135-145) mmol/L Potassium (3.5-5.3) mmol/L Chloride (100-110) mmol/L Carbon Dioxide (23-29) mmol/L BUN (5-20) mg/dL Creatinine (0.6-1.3) mg/dL Est Cr Clr Drug Dosing mL/min Estimated GFR (MDRD) (>60) BUN/Creatinine Ratio (9-20) Glucose (80-116) mg/dL POC Glucose (80-116) mg/dL Hemoglobin A1c (4.0-6.0) % Calcium (8.6-10.2) mg/dL Phosphorus (3.0-4.6) mg/dL Magnesium (1.8-2.5) mg/dL Total Bilirubin (0.1-1.3) mg/dL AST (5-27) IU/L ALT (14-26) IU/L Alkaline Phosphatase (56-112) IU/L Creatine Kinase (60-160) IU/L CK-MB (CK-2) (0.2-5.0) ng/mL Troponin I (0.02-0.06) NG/ML C-Reactive Protein 2.3 H (0.0-1.0) mg/dL Total Protein (6.0-8.0) g/dL Albumin (3.5-5.2) g/dL Globulin g/dL Albumin/Globulin Ratio Amylase (28-100) U/L TSH, Ultra Sensitive (0.4-5.5) nlU/mL Urine Color (YELLOW) Urine Appearance (CLEAR) Urine pH (5.0-6.5) Ur Specific [place] (1.010-1.025) Urine Protein (NEGATIVE) mg/dL Urine Glucose (UA) (NEGATIVE) mg/dL Urine Ketones (NEGATIVE) mg/dL Urine Occult Blood (NEGATIVE) Urine Nitrite (NEGATIVE) Urine Bilirubin (NEGATIVE) Urine Urobilinogen (NEGATIVE) mg/dL Ur Leukocyte Esterase (NEGATIVE) Urine RBC (0) Urine WBC (0) Ur Squamous Epith Cells (NS,R,O) Urine Bacteria (NS) Urine Opiates Screen (NEGATIVE) Ur Oxycodone Screen (NEGATIVE) Ur Propoxyphene Screen (NEGATIVE) Ur Barbituates Screen (NEGATIVE) Ur Tricyclics Screen (NEGATIVE) Ur Phencyclidine Scrn (NEGATIVE) Ur Amphetamine Screen (NEGATIVE) Urine MDMA Screen (NEGATIVE) U Benzodiazepines Scrn (NEGATIVE) U Cocaine Metab Screen (NEGATIVE) U Marijuana (THC) Screen (NEGATIVE) Ethyl Alcohol < 0.01 (<0.01) % 09/27/17 09/27/17 09/27/17 Range/Units 13:25 13:25 13:30 WBC (4.5-12.0) X10-3/uL RBC (4.30-5.75) x10(6)uL Hgb (11.5-15.5) g/dL Hct (30.0-51.3) % MCV (80-96) fL MCH (27.7-33.6) pg MCHC (32.2-35.4) g/dL RDW (11.5-15.5) % Plt Count (125-369) X10(3)uL MPV (7.4-10.4) fL Neut % (Auto) (46-82) % Lymph % (Auto) (13-37) % [place] % (Auto) (4-12) % Eos % (Auto) (1.0-5.0) % Baso % (Auto) (0-2) % Neut # (Auto) (1.6-8.3) # Lymph # (Auto) (0.6-5.0) # [place] # (Auto) (0.0-1.3) # Eos # (Auto) (0.0-0.8) # Baso # (Auto) (0.0-0.2) # ESR (0-15) mm/hr PT (8.7-11.1) INR (0.89-1.13) APTT (24.4-33.2) SECONDS ABG pH 7.42 (7.35-7.45) ABG pCO2 39 (35-45) mmHg ABG pO2 72 L (83-108) mmHg ABG HCO3 25 (22-26) mmol/L ABG O2 Saturation 95 L (96-97) % ABG Base Excess 1.2 (-2-2) Bashir Test Passed O2 Delivery Device Room air Sodium (135-145) mmol/L Potassium (3.5-5.3) mmol/L Chloride (100-110) mmol/L Carbon Dioxide (23-29) mmol/L BUN (5-20) mg/dL Creatinine (0.6-1.3) mg/dL Est Cr Clr Drug Dosing mL/min Estimated GFR (MDRD) (>60) BUN/Creatinine Ratio (9-20) Glucose 697 H* D (80-116) mg/dL POC Glucose > 500 H* (80-116) mg/dL Hemoglobin A1c (4.0-6.0) % Calcium (8.6-10.2) mg/dL Phosphorus (3.0-4.6) mg/dL Magnesium (1.8-2.5) mg/dL Total Bilirubin (0.1-1.3) mg/dL AST (5-27) IU/L ALT (14-26) IU/L Alkaline Phosphatase (56-112) IU/L Creatine Kinase (60-160) IU/L CK-MB (CK-2) (0.2-5.0) ng/mL Troponin I (0.02-0.06) NG/ML C-Reactive Protein (0.0-1.0) mg/dL Total Protein (6.0-8.0) g/dL Albumin (3.5-5.2) g/dL Globulin g/dL Albumin/Globulin Ratio Amylase (28-100) U/L TSH, Ultra Sensitive (0.4-5.5) nlU/mL Urine Color (YELLOW) Urine Appearance (CLEAR) Urine pH (5.0-6.5) Ur Specific [place] (1.010-1.025) Urine Protein (NEGATIVE) mg/dL Urine Glucose (UA) (NEGATIVE) mg/dL Urine Ketones (NEGATIVE) mg/dL Urine Occult Blood (NEGATIVE) Urine Nitrite (NEGATIVE) Urine Bilirubin (NEGATIVE) Urine Urobilinogen (NEGATIVE) mg/dL Ur Leukocyte Esterase (NEGATIVE) Urine RBC (0) Urine WBC (0) Ur Squamous Epith Cells (NS,R,O) Urine Bacteria (NS) Urine Opiates Screen (NEGATIVE) Ur Oxycodone Screen (NEGATIVE) Ur Propoxyphene Screen (NEGATIVE) Ur Barbituates Screen (NEGATIVE) Ur Tricyclics Screen (NEGATIVE) Ur Phencyclidine Scrn (NEGATIVE) Ur Amphetamine Screen (NEGATIVE) Urine MDMA Screen (NEGATIVE) U Benzodiazepines Scrn (NEGATIVE) U Cocaine Metab Screen (NEGATIVE) U Marijuana (THC) Screen (NEGATIVE) Ethyl Alcohol (<0.01) % 09/27/17 09/27/17 09/27/17 Range/Units 13:30 13:30 13:30 WBC 11.0 (4.5-12.0) X10-3/uL RBC 4.50 (4.30-5.75) x10(6)uL Hgb 14.8 (11.5-15.5) g/dL Hct 41.3 (30.0-51.3) % MCV 91.7 (80-96) fL MCH 33.0 (27.7-33.6) pg MCHC 35.9 H (32.2-35.4) g/dL RDW 11.7 (11.5-15.5) % Plt Count 261 (125-369) X10(3)uL MPV 8.7 (7.4-10.4) fL Neut % (Auto) 88.0 H (46-82) % Lymph % (Auto) 7.1 L (13-37) % [place] % (Auto) 4.5 (4-12) % Eos % (Auto) 0 L (1.0-5.0) % Baso % (Auto) 0 (0-2) % Neut # (Auto) 9.7 H (1.6-8.3) # Lymph # (Auto) 0.8 (0.6-5.0) # [place] # (Auto) 0.5 (0.0-1.3) # Eos # (Auto) 0.0 (0.0-0.8) # Baso # (Auto) 0.0 (0.0-0.2) # ESR 20 H (0-15) mm/hr PT 10.4 (8.7-11.1) INR 1.03 (0.89-1.13) APTT (24.4-33.2) SECONDS ABG pH (7.35-7.45) ABG pCO2 (35-45) mmHg ABG pO2 (83-108) mmHg ABG HCO3 (22-26) mmol/L ABG O2 Saturation (96-97) % ABG Base Excess (-2-2) Bashir Test O2 Delivery Device Sodium 124 L (135-145) mmol/L Potassium 4.0 (3.5-5.3) mmol/L Chloride 89 L* D (100-110) mmol/L Carbon Dioxide 23 (23-29) mmol/L BUN 23 H (5-20) mg/dL Creatinine 1.1 (0.6-1.3) mg/dL Est Cr Clr Drug Dosing 77.96 mL/min Estimated GFR (MDRD) > 60 (>60) BUN/Creatinine Ratio 20.9 H (9-20) Glucose TNP (80-116) mg/dL POC Glucose (80-116) mg/dL Hemoglobin A1c (4.0-6.0) % Calcium 9.2 (8.6-10.2) mg/dL Phosphorus 4.1 (3.0-4.6) mg/dL Magnesium 2.0 (1.8-2.5) mg/dL Total Bilirubin 1.8 H (0.1-1.3) mg/dL AST 46 H (5-27) IU/L ALT 67 H D (14-26) IU/L Alkaline Phosphatase 126 H (56-112) IU/L Creatine Kinase 804 H* (60-160) IU/L CK-MB (CK-2) 4.0 (0.2-5.0) ng/mL Troponin I (0.02-0.06) NG/ML C-Reactive Protein (0.0-1.0) mg/dL Total Protein 8.5 H (6.0-8.0) g/dL Albumin 4.8 (3.5-5.2) g/dL Globulin 3.7 g/dL Albumin/Globulin Ratio 1.3 Amylase 15 L (28-100) U/L TSH, Ultra Sensitive (0.4-5.5) nlU/mL Urine Color (YELLOW) Urine Appearance (CLEAR) Urine pH (5.0-6.5) Ur Specific [place] (1.010-1.025) Urine Protein (NEGATIVE) mg/dL Urine Glucose (UA) (NEGATIVE) mg/dL Urine Ketones (NEGATIVE) mg/dL Urine Occult Blood (NEGATIVE) Urine Nitrite (NEGATIVE) Urine Bilirubin (NEGATIVE) Urine Urobilinogen (NEGATIVE) mg/dL Ur Leukocyte Esterase (NEGATIVE) Urine RBC (0) Urine WBC (0) Ur Squamous Epith Cells (NS,R,O) Urine Bacteria (NS) Urine Opiates Screen (NEGATIVE) Ur Oxycodone Screen (NEGATIVE) Ur Propoxyphene Screen (NEGATIVE) Ur Barbituates Screen (NEGATIVE) Ur Tricyclics Screen (NEGATIVE) Ur Phencyclidine Scrn (NEGATIVE) Ur Amphetamine Screen (NEGATIVE) Urine MDMA Screen (NEGATIVE) U Benzodiazepines Scrn (NEGATIVE) U Cocaine Metab Screen (NEGATIVE) U Marijuana (THC) Screen (NEGATIVE) Ethyl Alcohol (<0.01) % 09/27/17 09/27/17 09/27/17 Range/Units 13:30 13:30 14:06 WBC (4.5-12.0) X10-3/uL RBC (4.30-5.75) x10(6)uL Hgb (11.5-15.5) g/dL Hct (30.0-51.3) % MCV (80-96) fL MCH (27.7-33.6) pg MCHC (32.2-35.4) g/dL RDW (11.5-15.5) % Plt Count (125-369) X10(3)uL MPV (7.4-10.4) fL Neut % (Auto) (46-82) % Lymph % (Auto) (13-37) % [place] % (Auto) (4-12) % Eos % (Auto) (1.0-5.0) % Baso % (Auto) (0-2) % Neut # (Auto) (1.6-8.3) # Lymph # (Auto) (0.6-5.0) # [place] # (Auto) (0.0-1.3) # Eos # (Auto) (0.0-0.8) # Baso # (Auto) (0.0-0.2) # ESR (0-15) mm/hr PT (8.7-11.1) INR (0.89-1.13) APTT (24.4-33.2) SECONDS ABG pH (7.35-7.45) ABG pCO2 (35-45) mmHg ABG pO2 (83-108) mmHg ABG HCO3 (22-26) mmol/L ABG O2 Saturation (96-97) % ABG Base Excess (-2-2) Bashir Test O2 Delivery Device Sodium (135-145) mmol/L Potassium (3.5-5.3) mmol/L Chloride (100-110) mmol/L Carbon Dioxide (23-29) mmol/L BUN (5-20) mg/dL Creatinine (0.6-1.3) mg/dL Est Cr Clr Drug Dosing mL/min Estimated GFR (MDRD) (>60) BUN/Creatinine Ratio (9-20) Glucose (80-116) mg/dL POC Glucose (80-116) mg/dL Hemoglobin A1c 11.3 H (4.0-6.0) % Calcium (8.6-10.2) mg/dL Phosphorus (3.0-4.6) mg/dL Magnesium (1.8-2.5) mg/dL Total Bilirubin (0.1-1.3) mg/dL AST (5-27) IU/L ALT (14-26) IU/L Alkaline Phosphatase (56-112) IU/L Creatine Kinase (60-160) IU/L CK-MB (CK-2) (0.2-5.0) ng/mL Troponin I 1.07 H* (0.02-0.06) NG/ML C-Reactive Protein (0.0-1.0) mg/dL Total Protein (6.0-8.0) g/dL Albumin (3.5-5.2) g/dL Globulin g/dL Albumin/Globulin Ratio Amylase (28-100) U/L TSH, Ultra Sensitive 1.07 (0.4-5.5) nlU/mL Urine Color (YELLOW) Urine Appearance (CLEAR) Urine pH (5.0-6.5) Ur Specific [place] (1.010-1.025) Urine Protein (NEGATIVE) mg/dL Urine Glucose (UA) (NEGATIVE) mg/dL Urine Ketones (NEGATIVE) mg/dL Urine Occult Blood (NEGATIVE) Urine Nitrite (NEGATIVE) Urine Bilirubin (NEGATIVE) Urine Urobilinogen (NEGATIVE) mg/dL Ur Leukocyte Esterase (NEGATIVE) Urine RBC (0) Urine WBC (0) Ur Squamous Epith Cells (NS,R,O) Urine Bacteria (NS) Urine Opiates Screen (NEGATIVE) Ur Oxycodone Screen (NEGATIVE) Ur Propoxyphene Screen (NEGATIVE) Ur Barbituates Screen (NEGATIVE) Ur Tricyclics Screen (NEGATIVE) Ur Phencyclidine Scrn (NEGATIVE) Ur Amphetamine Screen (NEGATIVE) Urine MDMA Screen (NEGATIVE) U Benzodiazepines Scrn (NEGATIVE) U Cocaine Metab Screen (NEGATIVE) U Marijuana (THC) Screen (NEGATIVE) Ethyl Alcohol (<0.01) % 09/27/17 09/27/17 09/27/17 Range/Units 14:10 14:10 15:00 WBC (4.5-12.0) X10-3/uL RBC (4.30-5.75) x10(6)uL Hgb (11.5-15.5) g/dL Hct (30.0-51.3) % MCV (80-96) fL MCH (27.7-33.6) pg MCHC (32.2-35.4) g/dL RDW (11.5-15.5) % Plt Count (125-369) X10(3)uL MPV (7.4-10.4) fL Neut % (Auto) (46-82) % Lymph % (Auto) (13-37) % [place] % (Auto) (4-12) % Eos % (Auto) (1.0-5.0) % Baso % (Auto) (0-2) % Neut # (Auto) (1.6-8.3) # Lymph # (Auto) (0.6-5.0) # [place] # (Auto) (0.0-1.3) # Eos # (Auto) (0.0-0.8) # Baso # (Auto) (0.0-0.2) # ESR (0-15) mm/hr PT (8.7-11.1) INR (0.89-1.13) APTT (24.4-33.2) SECONDS ABG pH (7.35-7.45) ABG pCO2 (35-45) mmHg ABG pO2 (83-108) mmHg ABG HCO3 (22-26) mmol/L ABG O2 Saturation (96-97) % ABG Base Excess (-2-2) Bashir Test O2 Delivery Device Sodium (135-145) mmol/L Potassium 3.6 (3.5-5.3) mmol/L Chloride (100-110) mmol/L Carbon Dioxide (23-29) mmol/L BUN (5-20) mg/dL Creatinine (0.6-1.3) mg/dL Est Cr Clr Drug Dosing mL/min Estimated GFR (MDRD) (>60) BUN/Creatinine Ratio (9-20) Glucose 565 H* D (80-116) mg/dL POC Glucose (80-116) mg/dL Hemoglobin A1c (4.0-6.0) % Calcium (8.6-10.2) mg/dL Phosphorus (3.0-4.6) mg/dL Magnesium (1.8-2.5) mg/dL Total Bilirubin (0.1-1.3) mg/dL AST (5-27) IU/L ALT (14-26) IU/L Alkaline Phosphatase (56-112) IU/L Creatine Kinase (60-160) IU/L CK-MB (CK-2) (0.2-5.0) ng/mL Troponin I (0.02-0.06) NG/ML C-Reactive Protein (0.0-1.0) mg/dL Total Protein (6.0-8.0) g/dL Albumin (3.5-5.2) g/dL Globulin g/dL Albumin/Globulin Ratio Amylase (28-100) U/L TSH, Ultra Sensitive (0.4-5.5) nlU/mL Urine Color Yellow (YELLOW) Urine Appearance Clear (CLEAR) Urine pH 5.0 (5.0-6.5) Ur Specific [place] 1.010 (1.010-1.025) Urine Protein Negative (NEGATIVE) mg/dL Urine Glucose (UA) >1000 H (NEGATIVE) mg/dL Urine Ketones 15 H (NEGATIVE) mg/dL Urine Occult Blood Moderate H (NEGATIVE) Urine Nitrite Negative (NEGATIVE) Urine Bilirubin Negative (NEGATIVE) Urine Urobilinogen Normal (NEGATIVE) mg/dL Ur Leukocyte Esterase Negative (NEGATIVE) Urine RBC 10-20 H (0) Urine WBC 0-5 (0) Ur Squamous Epith Cells Few H (NS,R,O) Urine Bacteria Moderate H (NS) Urine Opiates Screen Negative (NEGATIVE) Ur Oxycodone Screen Negative (NEGATIVE) Ur Propoxyphene Screen Negative (NEGATIVE) Ur Barbituates Screen Negative (NEGATIVE) Ur Tricyclics Screen Negative (NEGATIVE) Ur Phencyclidine Scrn Negative (NEGATIVE) Ur Amphetamine Screen Negative (NEGATIVE) Urine MDMA Screen Negative (NEGATIVE) U Benzodiazepines Scrn Negative (NEGATIVE) U Cocaine Metab Screen Negative (NEGATIVE) U Marijuana (THC) Screen Negative (NEGATIVE) Ethyl Alcohol (<0.01) % 09/27/17 09/27/17 09/27/17 Range/Units 15:04 15:40 16:00 WBC (4.5-12.0) X10-3/uL RBC (4.30-5.75) x10(6)uL Hgb (11.5-15.5) g/dL Hct (30.0-51.3) % MCV (80-96) fL MCH (27.7-33.6) pg MCHC (32.2-35.4) g/dL RDW (11.5-15.5) % Plt Count (125-369) X10(3)uL MPV (7.4-10.4) fL Neut % (Auto) (46-82) % Lymph % (Auto) (13-37) % [place] % (Auto) (4-12) % Eos % (Auto) (1.0-5.0) % Baso % (Auto) (0-2) % Neut # (Auto) (1.6-8.3) # Lymph # (Auto) (0.6-5.0) # [place] # (Auto) (0.0-1.3) # Eos # (Auto) (0.0-0.8) # Baso # (Auto) (0.0-0.2) # ESR (0-15) mm/hr PT (8.7-11.1) INR (0.89-1.13) APTT (24.4-33.2) SECONDS ABG pH (7.35-7.45) ABG pCO2 (35-45) mmHg ABG pO2 (83-108) mmHg ABG HCO3 (22-26) mmol/L ABG O2 Saturation (96-97) % ABG Base Excess (-2-2) Bashir Test O2 Delivery Device Sodium (135-145) mmol/L Potassium 3.9 (3.5-5.3) mmol/L Chloride (100-110) mmol/L Carbon Dioxide (23-29) mmol/L BUN (5-20) mg/dL Creatinine (0.6-1.3) mg/dL Est Cr Clr Drug Dosing mL/min Estimated GFR (MDRD) (>60) BUN/Creatinine Ratio (9-20) Glucose 438 H* D (80-116) mg/dL POC Glucose > 500 H* (80-116) mg/dL Hemoglobin A1c (4.0-6.0) % Calcium (8.6-10.2) mg/dL Phosphorus (3.0-4.6) mg/dL Magnesium (1.8-2.5) mg/dL Total Bilirubin (0.1-1.3) mg/dL AST (5-27) IU/L ALT (14-26) IU/L Alkaline Phosphatase (56-112) IU/L Creatine Kinase (60-160) IU/L CK-MB (CK-2) (0.2-5.0) ng/mL Troponin I 0.02 (0.02-0.06) NG/ML C-Reactive Protein (0.0-1.0) mg/dL Total Protein (6.0-8.0) g/dL Albumin (3.5-5.2) g/dL Globulin g/dL Albumin/Globulin Ratio Amylase (28-100) U/L TSH, Ultra Sensitive (0.4-5.5) nlU/mL Urine Color (YELLOW) Urine Appearance (CLEAR) Urine pH (5.0-6.5) Ur Specific [place] (1.010-1.025) Urine Protein (NEGATIVE) mg/dL Urine Glucose (UA) (NEGATIVE) mg/dL Urine Ketones (NEGATIVE) mg/dL Urine Occult Blood (NEGATIVE) Urine Nitrite (NEGATIVE) Urine Bilirubin (NEGATIVE) Urine Urobilinogen (NEGATIVE) mg/dL Ur Leukocyte Esterase (NEGATIVE) Urine RBC (0) Urine WBC (0) Ur Squamous Epith Cells (NS,R,O) Urine Bacteria (NS) Urine Opiates Screen (NEGATIVE) Ur Oxycodone Screen (NEGATIVE) Ur Propoxyphene Screen (NEGATIVE) Ur Barbituates Screen (NEGATIVE) Ur Tricyclics Screen (NEGATIVE) Ur Phencyclidine Scrn (NEGATIVE) Ur Amphetamine Screen (NEGATIVE) Urine MDMA Screen (NEGATIVE) U Benzodiazepines Scrn (NEGATIVE) U Cocaine Metab Screen (NEGATIVE) U Marijuana (THC) Screen (NEGATIVE) Ethyl Alcohol (<0.01) % 09/27/17 09/27/17 09/27/17 Range/Units 16:01 16:54 17:40 WBC (4.5-12.0) X10-3/uL RBC (4.30-5.75) x10(6)uL Hgb (11.5-15.5) g/dL Hct (30.0-51.3) % MCV (80-96) fL MCH (27.7-33.6) pg MCHC (32.2-35.4) g/dL RDW (11.5-15.5) % Plt Count (125-369) X10(3)uL MPV (7.4-10.4) fL Neut % (Auto) (46-82) % Lymph % (Auto) (13-37) % [place] % (Auto) (4-12) % Eos % (Auto) (1.0-5.0) % Baso % (Auto) (0-2) % Neut # (Auto) (1.6-8.3) # Lymph # (Auto) (0.6-5.0) # [place] # (Auto) (0.0-1.3) # Eos # (Auto) (0.0-0.8) # Baso # (Auto) (0.0-0.2) # ESR (0-15) mm/hr PT (8.7-11.1) INR (0.89-1.13) APTT (24.4-33.2) SECONDS ABG pH (7.35-7.45) ABG pCO2 (35-45) mmHg ABG pO2 (83-108) mmHg ABG HCO3 (22-26) mmol/L ABG O2 Saturation (96-97) % ABG Base Excess (-2-2) Bashir Test O2 Delivery Device Sodium 131 L (135-145) mmol/L Potassium 3.8 (3.5-5.3) mmol/L Chloride 96 L D (100-110) mmol/L Carbon Dioxide 26 (23-29) mmol/L BUN 19 (5-20) mg/dL Creatinine 1.0 (0.6-1.3) mg/dL Est Cr Clr Drug Dosing 85.76 mL/min Estimated GFR (MDRD) > 60 (>60) BUN/Creatinine Ratio 19.0 (9-20) Glucose 351 H D (80-116) mg/dL POC Glucose 406 H* D 331 H (80-116) mg/dL Hemoglobin A1c (4.0-6.0) % Calcium 9.2 (8.6-10.2) mg/dL Phosphorus (3.0-4.6) mg/dL Magnesium (1.8-2.5) mg/dL Total Bilirubin (0.1-1.3) mg/dL AST (5-27) IU/L ALT (14-26) IU/L Alkaline Phosphatase (56-112) IU/L Creatine Kinase (60-160) IU/L CK-MB (CK-2) (0.2-5.0) ng/mL Troponin I (0.02-0.06) NG/ML C-Reactive Protein (0.0-1.0) mg/dL Total Protein (6.0-8.0) g/dL Albumin (3.5-5.2) g/dL Globulin g/dL Albumin/Globulin Ratio Amylase (28-100) U/L TSH, Ultra Sensitive (0.4-5.5) nlU/mL Urine Color (YELLOW) Urine Appearance (CLEAR) Urine pH (5.0-6.5) Ur Specific [place] (1.010-1.025) Urine Protein (NEGATIVE) mg/dL Urine Glucose (UA) (NEGATIVE) mg/dL Urine Ketones (NEGATIVE) mg/dL Urine Occult Blood (NEGATIVE) Urine Nitrite (NEGATIVE) Urine Bilirubin (NEGATIVE) Urine Urobilinogen (NEGATIVE) mg/dL Ur Leukocyte Esterase (NEGATIVE) Urine RBC (0) Urine WBC (0) Ur Squamous Epith Cells (NS,R,O) Urine Bacteria (NS) Urine Opiates Screen (NEGATIVE) Ur Oxycodone Screen (NEGATIVE) Ur Propoxyphene Screen (NEGATIVE) Ur Barbituates Screen (NEGATIVE) Ur Tricyclics Screen (NEGATIVE) Ur Phencyclidine Scrn (NEGATIVE) Ur Amphetamine Screen (NEGATIVE) Urine MDMA Screen (NEGATIVE) U Benzodiazepines Scrn (NEGATIVE) U Cocaine Metab Screen (NEGATIVE) U Marijuana (THC) Screen (NEGATIVE) Ethyl Alcohol (<0.01) % 09/27/17 09/27/17 09/27/17 Range/Units 18:05 19:00 19:04 WBC (4.5-12.0) X10-3/uL RBC (4.30-5.75) x10(6)uL Hgb (11.5-15.5) g/dL Hct (30.0-51.3) % MCV (80-96) fL MCH (27.7-33.6) pg MCHC (32.2-35.4) g/dL RDW (11.5-15.5) % Plt Count (125-369) X10(3)uL MPV (7.4-10.4) fL Neut % (Auto) (46-82) % Lymph % (Auto) (13-37) % [place] % (Auto) (4-12) % Eos % (Auto) (1.0-5.0) % Baso % (Auto) (0-2) % Neut # (Auto) (1.6-8.3) # Lymph # (Auto) (0.6-5.0) # [place] # (Auto) (0.0-1.3) # Eos # (Auto) (0.0-0.8) # Baso # (Auto) (0.0-0.2) # ESR (0-15) mm/hr PT (8.7-11.1) INR (0.89-1.13) APTT (24.4-33.2) SECONDS ABG pH (7.35-7.45) ABG pCO2 (35-45) mmHg ABG pO2 (83-108) mmHg ABG HCO3 (22-26) mmol/L ABG O2 Saturation (96-97) % ABG Base Excess (-2-2) Bashir Test O2 Delivery Device Sodium (135-145) mmol/L Potassium 3.6 (3.5-5.3) mmol/L Chloride (100-110) mmol/L Carbon Dioxide (23-29) mmol/L BUN (5-20) mg/dL Creatinine (0.6-1.3) mg/dL Est Cr Clr Drug Dosing mL/min Estimated GFR (MDRD) (>60) BUN/Creatinine Ratio (9-20) Glucose (80-116) mg/dL POC Glucose 310 H 272 H (80-116) mg/dL Hemoglobin A1c (4.0-6.0) % Calcium (8.6-10.2) mg/dL Phosphorus (3.0-4.6) mg/dL Magnesium (1.8-2.5) mg/dL Total Bilirubin (0.1-1.3) mg/dL AST (5-27) IU/L ALT (14-26) IU/L Alkaline Phosphatase (56-112) IU/L Creatine Kinase (60-160) IU/L CK-MB (CK-2) (0.2-5.0) ng/mL Troponin I (0.02-0.06) NG/ML C-Reactive Protein (0.0-1.0) mg/dL Total Protein (6.0-8.0) g/dL Albumin (3.5-5.2) g/dL Globulin g/dL Albumin/Globulin Ratio Amylase (28-100) U/L TSH, Ultra Sensitive (0.4-5.5) nlU/mL Urine Color (YELLOW) Urine Appearance (CLEAR) Urine pH (5.0-6.5) Ur Specific [place] (1.010-1.025) Urine Protein (NEGATIVE) mg/dL Urine Glucose (UA) (NEGATIVE) mg/dL Urine Ketones (NEGATIVE) mg/dL Urine Occult Blood (NEGATIVE) Urine Nitrite (NEGATIVE) Urine Bilirubin (NEGATIVE) Urine Urobilinogen (NEGATIVE) mg/dL Ur Leukocyte Esterase (NEGATIVE) Urine RBC (0) Urine WBC (0) Ur Squamous Epith Cells (NS,R,O) Urine Bacteria (NS) Urine Opiates Screen (NEGATIVE) Ur Oxycodone Screen (NEGATIVE) Ur Propoxyphene Screen (NEGATIVE) Ur Barbituates Screen (NEGATIVE) Ur Tricyclics Screen (NEGATIVE) Ur Phencyclidine Scrn (NEGATIVE) Ur Amphetamine Screen (NEGATIVE) Urine MDMA Screen (NEGATIVE) U Benzodiazepines Scrn (NEGATIVE) U Cocaine Metab Screen (NEGATIVE) U Marijuana (THC) Screen (NEGATIVE) Ethyl Alcohol (<0.01) % 09/27/17 09/27/17 09/27/17 Range/Units 20:00 20:05 21:11 WBC (4.5-12.0) X10-3/uL RBC (4.30-5.75) x10(6)uL Hgb (11.5-15.5) g/dL Hct (30.0-51.3) % MCV (80-96) fL MCH (27.7-33.6) pg MCHC (32.2-35.4) g/dL RDW (11.5-15.5) % Plt Count (125-369) X10(3)uL MPV (7.4-10.4) fL Neut % (Auto) (46-82) % Lymph % (Auto) (13-37) % [place] % (Auto) (4-12) % Eos % (Auto) (1.0-5.0) % Baso % (Auto) (0-2) % Neut # (Auto) (1.6-8.3) # Lymph # (Auto) (0.6-5.0) # [place] # (Auto) (0.0-1.3) # Eos # (Auto) (0.0-0.8) # Baso # (Auto) (0.0-0.2) # ESR (0-15) mm/hr PT (8.7-11.1) INR (0.89-1.13) APTT (24.4-33.2) SECONDS ABG pH (7.35-7.45) ABG pCO2 (35-45) mmHg ABG pO2 (83-108) mmHg ABG HCO3 (22-26) mmol/L ABG O2 Saturation (96-97) % ABG Base Excess (-2-2) Bashir Test O2 Delivery Device Sodium (135-145) mmol/L Potassium 3.8 (3.5-5.3) mmol/L Chloride (100-110) mmol/L Carbon Dioxide (23-29) mmol/L BUN (5-20) mg/dL Creatinine (0.6-1.3) mg/dL Est Cr Clr Drug Dosing mL/min Estimated GFR (MDRD) (>60) BUN/Creatinine Ratio (9-20) Glucose (80-116) mg/dL POC Glucose 254 H 209 H (80-116) mg/dL Hemoglobin A1c (4.0-6.0) % Calcium (8.6-10.2) mg/dL Phosphorus 2.8 L (3.0-4.6) mg/dL Magnesium 1.9 (1.8-2.5) mg/dL Total Bilirubin (0.1-1.3) mg/dL AST (5-27) IU/L ALT (14-26) IU/L Alkaline Phosphatase (56-112) IU/L Creatine Kinase (60-160) IU/L CK-MB (CK-2) (0.2-5.0) ng/mL Troponin I (0.02-0.06) NG/ML C-Reactive Protein (0.0-1.0) mg/dL Total Protein (6.0-8.0) g/dL Albumin (3.5-5.2) g/dL Globulin g/dL Albumin/Globulin Ratio Amylase (28-100) U/L TSH, Ultra Sensitive (0.4-5.5) nlU/mL Urine Color (YELLOW) Urine Appearance (CLEAR) Urine pH (5.0-6.5) Ur Specific [place] (1.010-1.025) Urine Protein (NEGATIVE) mg/dL Urine Glucose (UA) (NEGATIVE) mg/dL Urine Ketones (NEGATIVE) mg/dL Urine Occult Blood (NEGATIVE) Urine Nitrite (NEGATIVE) Urine Bilirubin (NEGATIVE) Urine Urobilinogen (NEGATIVE) mg/dL Ur Leukocyte Esterase (NEGATIVE) Urine RBC (0) Urine WBC (0) Ur Squamous Epith Cells (NS,R,O) Urine Bacteria (NS) Urine Opiates Screen (NEGATIVE) Ur Oxycodone Screen (NEGATIVE) Ur Propoxyphene Screen (NEGATIVE) Ur Barbituates Screen (NEGATIVE) Ur Tricyclics Screen (NEGATIVE) Ur Phencyclidine Scrn (NEGATIVE) Ur Amphetamine Screen (NEGATIVE) Urine MDMA Screen (NEGATIVE) U Benzodiazepines Scrn (NEGATIVE) U Cocaine Metab Screen (NEGATIVE) U Marijuana (THC) Screen (NEGATIVE) Ethyl Alcohol (<0.01) % 09/27/17 09/27/17 09/27/17 Range/Units 21:57 22:05 22:05 WBC (4.5-12.0) X10-3/uL RBC (4.30-5.75) x10(6)uL Hgb (11.5-15.5) g/dL Hct (30.0-51.3) % MCV (80-96) fL MCH (27.7-33.6) pg MCHC (32.2-35.4) g/dL RDW (11.5-15.5) % Plt Count (125-369) X10(3)uL MPV (7.4-10.4) fL Neut % (Auto) (46-82) % Lymph % (Auto) (13-37) % [place] % (Auto) (4-12) % Eos % (Auto) (1.0-5.0) % Baso % (Auto) (0-2) % Neut # (Auto) (1.6-8.3) # Lymph # (Auto) (0.6-5.0) # [place] # (Auto) (0.0-1.3) # Eos # (Auto) (0.0-0.8) # Baso # (Auto) (0.0-0.2) # ESR (0-15) mm/hr PT (8.7-11.1) INR (0.89-1.13) APTT 26.3 (24.4-33.2) SECONDS ABG pH (7.35-7.45) ABG pCO2 (35-45) mmHg ABG pO2 (83-108) mmHg ABG HCO3 (22-26) mmol/L ABG O2 Saturation (96-97) % ABG Base Excess (-2-2) Bashir Test O2 Delivery Device Sodium (135-145) mmol/L Potassium (3.5-5.3) mmol/L Chloride (100-110) mmol/L Carbon Dioxide (23-29) mmol/L BUN (5-20) mg/dL Creatinine (0.6-1.3) mg/dL Est Cr Clr Drug Dosing mL/min Estimated GFR (MDRD) (>60) BUN/Creatinine Ratio (9-20) Glucose (80-116) mg/dL POC Glucose 155 H (80-116) mg/dL Hemoglobin A1c (4.0-6.0) % Calcium (8.6-10.2) mg/dL Phosphorus (3.0-4.6) mg/dL Magnesium (1.8-2.5) mg/dL Total Bilirubin (0.1-1.3) mg/dL AST (5-27) IU/L ALT (14-26) IU/L Alkaline Phosphatase (56-112) IU/L Creatine Kinase (60-160) IU/L CK-MB (CK-2) (0.2-5.0) ng/mL Troponin I 0.02 (0.02-0.06) NG/ML C-Reactive Protein (0.0-1.0) mg/dL Total Protein (6.0-8.0) g/dL Albumin (3.5-5.2) g/dL Globulin g/dL Albumin/Globulin Ratio Amylase (28-100) U/L TSH, Ultra Sensitive (0.4-5.5) nlU/mL Urine Color (YELLOW) Urine Appearance (CLEAR) Urine pH (5.0-6.5) Ur Specific [place] (1.010-1.025) Urine Protein (NEGATIVE) mg/dL Urine Glucose (UA) (NEGATIVE) mg/dL Urine Ketones (NEGATIVE) mg/dL Urine Occult Blood (NEGATIVE) Urine Nitrite (NEGATIVE) Urine Bilirubin (NEGATIVE) Urine Urobilinogen (NEGATIVE) mg/dL Ur Leukocyte Esterase (NEGATIVE) Urine RBC (0) Urine WBC (0) Ur Squamous Epith Cells (NS,R,O) Urine Bacteria (NS) Urine Opiates Screen (NEGATIVE) Ur Oxycodone Screen (NEGATIVE) Ur Propoxyphene Screen (NEGATIVE) Ur Barbituates Screen (NEGATIVE) Ur Tricyclics Screen (NEGATIVE) Ur Phencyclidine Scrn (NEGATIVE) Ur Amphetamine Screen (NEGATIVE) Urine MDMA Screen (NEGATIVE) U Benzodiazepines Scrn (NEGATIVE) U Cocaine Metab Screen (NEGATIVE) U Marijuana (THC) Screen (NEGATIVE) Ethyl Alcohol (<0.01) % 09/27/17 09/27/17 09/28/17 Range/Units 22:05 23:20 00:08 WBC (4.5-12.0) X10-3/uL RBC (4.30-5.75) x10(6)uL Hgb (11.5-15.5) g/dL Hct (30.0-51.3) % MCV (80-96) fL MCH (27.7-33.6) pg MCHC (32.2-35.4) g/dL RDW (11.5-15.5) % Plt Count (125-369) X10(3)uL MPV (7.4-10.4) fL Neut % (Auto) (46-82) % Lymph % (Auto) (13-37) % [place] % (Auto) (4-12) % Eos % (Auto) (1.0-5.0) % Baso % (Auto) (0-2) % Neut # (Auto) (1.6-8.3) # Lymph # (Auto) (0.6-5.0) # [place] # (Auto) (0.0-1.3) # Eos # (Auto) (0.0-0.8) # Baso # (Auto) (0.0-0.2) # ESR (0-15) mm/hr PT (8.7-11.1) INR (0.89-1.13) APTT (24.4-33.2) SECONDS ABG pH (7.35-7.45) ABG pCO2 (35-45) mmHg ABG pO2 (83-108) mmHg ABG HCO3 (22-26) mmol/L ABG O2 Saturation (96-97) % ABG Base Excess (-2-2) Bashir Test O2 Delivery Device Sodium 133 L (135-145) mmol/L Potassium 3.1 L (3.5-5.3) mmol/L Chloride 99 L (100-110) mmol/L Carbon Dioxide 27 (23-29) mmol/L BUN 15 (5-20) mg/dL Creatinine 0.7 (0.6-1.3) mg/dL Est Cr Clr Drug Dosing 122.51 mL/min Estimated GFR (MDRD) > 60 (>60) BUN/Creatinine Ratio 21.4 H (9-20) Glucose 169 H D (80-116) mg/dL POC Glucose 89 107 (80-116) mg/dL Hemoglobin A1c (4.0-6.0) % Calcium 8.8 (8.6-10.2) mg/dL Phosphorus (3.0-4.6) mg/dL Magnesium (1.8-2.5) mg/dL Total Bilirubin (0.1-1.3) mg/dL AST (5-27) IU/L ALT (14-26) IU/L Alkaline Phosphatase (56-112) IU/L Creatine Kinase (60-160) IU/L CK-MB (CK-2) (0.2-5.0) ng/mL Troponin I (0.02-0.06) NG/ML C-Reactive Protein (0.0-1.0) mg/dL Total Protein (6.0-8.0) g/dL Albumin (3.5-5.2) g/dL Globulin g/dL Albumin/Globulin Ratio Amylase (28-100) U/L TSH, Ultra Sensitive (0.4-5.5) nlU/mL Urine Color (YELLOW) Urine Appearance (CLEAR) Urine pH (5.0-6.5) Ur Specific [place] (1.010-1.025) Urine Protein (NEGATIVE) mg/dL Urine Glucose (UA) (NEGATIVE) mg/dL Urine Ketones (NEGATIVE) mg/dL Urine Occult Blood (NEGATIVE) Urine Nitrite (NEGATIVE) Urine Bilirubin (NEGATIVE) Urine Urobilinogen (NEGATIVE) mg/dL Ur Leukocyte Esterase (NEGATIVE) Urine RBC (0) Urine WBC (0) Ur Squamous Epith Cells (NS,R,O) Urine Bacteria (NS) Urine Opiates Screen (NEGATIVE) Ur Oxycodone Screen (NEGATIVE) Ur Propoxyphene Screen (NEGATIVE) Ur Barbituates Screen (NEGATIVE) Ur Tricyclics Screen (NEGATIVE) Ur Phencyclidine Scrn (NEGATIVE) Ur Amphetamine Screen (NEGATIVE) Urine MDMA Screen (NEGATIVE) U Benzodiazepines Scrn (NEGATIVE) U Cocaine Metab Screen (NEGATIVE) U Marijuana (THC) Screen (NEGATIVE) Ethyl Alcohol (<0.01) % 09/28/17 09/28/17 09/28/17 Range/Units 01:14 02:08 02:09 WBC (4.5-12.0) X10-3/uL RBC (4.30-5.75) x10(6)uL Hgb (11.5-15.5) g/dL Hct (30.0-51.3) % MCV (80-96) fL MCH (27.7-33.6) pg MCHC (32.2-35.4) g/dL RDW (11.5-15.5) % Plt Count (125-369) X10(3)uL MPV (7.4-10.4) fL Neut % (Auto) (46-82) % Lymph % (Auto) (13-37) % [place] % (Auto) (4-12) % Eos % (Auto) (1.0-5.0) % Baso % (Auto) (0-2) % Neut # (Auto) (1.6-8.3) # Lymph # (Auto) (0.6-5.0) # [place] # (Auto) (0.0-1.3) # Eos # (Auto) (0.0-0.8) # Baso # (Auto) (0.0-0.2) # ESR (0-15) mm/hr PT (8.7-11.1) INR (0.89-1.13) APTT (24.4-33.2) SECONDS ABG pH (7.35-7.45) ABG pCO2 (35-45) mmHg ABG pO2 (83-108) mmHg ABG HCO3 (22-26) mmol/L ABG O2 Saturation (96-97) % ABG Base Excess (-2-2) Basihr Test O2 Delivery Device Sodium (135-145) mmol/L Potassium 3.4 L (3.5-5.3) mmol/L Chloride (100-110) mmol/L Carbon Dioxide (23-29) mmol/L BUN (5-20) mg/dL Creatinine (0.6-1.3) mg/dL Est Cr Clr Drug Dosing mL/min Estimated GFR (MDRD) (>60) BUN/Creatinine Ratio (9-20) Glucose (80-116) mg/dL POC Glucose 142 H 151 H (80-116) mg/dL Hemoglobin A1c (4.0-6.0) % Calcium (8.6-10.2) mg/dL Phosphorus 3.3 (3.0-4.6) mg/dL Magnesium 1.7 L (1.8-2.5) mg/dL Total Bilirubin (0.1-1.3) mg/dL AST (5-27) IU/L ALT (14-26) IU/L Alkaline Phosphatase (56-112) IU/L Creatine Kinase (60-160) IU/L CK-MB (CK-2) (0.2-5.0) ng/mL Troponin I (0.02-0.06) NG/ML C-Reactive Protein (0.0-1.0) mg/dL Total Protein (6.0-8.0) g/dL Albumin (3.5-5.2) g/dL Globulin g/dL Albumin/Globulin Ratio Amylase (28-100) U/L TSH, Ultra Sensitive (0.4-5.5) nlU/mL Urine Color (YELLOW) Urine Appearance (CLEAR) Urine pH (5.0-6.5) Ur Specific [place] (1.010-1.025) Urine Protein (NEGATIVE) mg/dL Urine Glucose (UA) (NEGATIVE) mg/dL Urine Ketones (NEGATIVE) mg/dL Urine Occult Blood (NEGATIVE) Urine Nitrite (NEGATIVE) Urine Bilirubin (NEGATIVE) Urine Urobilinogen (NEGATIVE) mg/dL Ur Leukocyte Esterase (NEGATIVE) Urine RBC (0) Urine WBC (0) Ur Squamous Epith Cells (NS,R,O) Urine Bacteria (NS) Urine Opiates Screen (NEGATIVE) Ur Oxycodone Screen (NEGATIVE) Ur Propoxyphene Screen (NEGATIVE) Ur Barbituates Screen (NEGATIVE) Ur Tricyclics Screen (NEGATIVE) Ur Phencyclidine Scrn (NEGATIVE) Ur Amphetamine Screen (NEGATIVE) Urine MDMA Screen (NEGATIVE) U Benzodiazepines Scrn (NEGATIVE) U Cocaine Metab Screen (NEGATIVE) U Marijuana (THC) Screen (NEGATIVE) Ethyl Alcohol (<0.01) % 09/28/17 09/28/17 09/28/17 Range/Units 03:01 04:03 05:00 WBC (4.5-12.0) X10-3/uL RBC (4.30-5.75) x10(6)uL Hgb (11.5-15.5) g/dL Hct (30.0-51.3) % MCV (80-96) fL MCH (27.7-33.6) pg MCHC (32.2-35.4) g/dL RDW (11.5-15.5) % Plt Count (125-369) X10(3)uL MPV (7.4-10.4) fL Neut % (Auto) (46-82) % Lymph % (Auto) (13-37) % [place] % (Auto) (4-12) % Eos % (Auto) (1.0-5.0) % Baso % (Auto) (0-2) % Neut # (Auto) (1.6-8.3) # Lymph # (Auto) (0.6-5.0) # [place] # (Auto) (0.0-1.3) # Eos # (Auto) (0.0-0.8) # Baso # (Auto) (0.0-0.2) # ESR (0-15) mm/hr PT (8.7-11.1) INR (0.89-1.13) APTT (24.4-33.2) SECONDS ABG pH (7.35-7.45) ABG pCO2 (35-45) mmHg ABG pO2 (83-108) mmHg ABG HCO3 (22-26) mmol/L ABG O2 Saturation (96-97) % ABG Base Excess (-2-2) Bashir Test O2 Delivery Device Sodium (135-145) mmol/L Potassium (3.5-5.3) mmol/L Chloride (100-110) mmol/L Carbon Dioxide (23-29) mmol/L BUN (5-20) mg/dL Creatinine (0.6-1.3) mg/dL Est Cr Clr Drug Dosing mL/min Estimated GFR (MDRD) (>60) BUN/Creatinine Ratio (9-20) Glucose (80-116) mg/dL POC Glucose 167 H 225 H 173 H (80-116) mg/dL Hemoglobin A1c (4.0-6.0) % Calcium (8.6-10.2) mg/dL Phosphorus (3.0-4.6) mg/dL Magnesium (1.8-2.5) mg/dL Total Bilirubin (0.1-1.3) mg/dL AST (5-27) IU/L ALT (14-26) IU/L Alkaline Phosphatase (56-112) IU/L Creatine Kinase (60-160) IU/L CK-MB (CK-2) (0.2-5.0) ng/mL Troponin I (0.02-0.06) NG/ML C-Reactive Protein (0.0-1.0) mg/dL Total Protein (6.0-8.0) g/dL Albumin (3.5-5.2) g/dL Globulin g/dL Albumin/Globulin Ratio Amylase (28-100) U/L TSH, Ultra Sensitive (0.4-5.5) nlU/mL Urine Color (YELLOW) Urine Appearance (CLEAR) Urine pH (5.0-6.5) Ur Specific [place] (1.010-1.025) Urine Protein (NEGATIVE) mg/dL Urine Glucose (UA) (NEGATIVE) mg/dL Urine Ketones (NEGATIVE) mg/dL Urine Occult Blood (NEGATIVE) Urine Nitrite (NEGATIVE) Urine Bilirubin (NEGATIVE) Urine Urobilinogen (NEGATIVE) mg/dL Ur Leukocyte Esterase (NEGATIVE) Urine RBC (0) Urine WBC (0) Ur Squamous Epith Cells (NS,R,O) Urine Bacteria (NS) Urine Opiates Screen (NEGATIVE) Ur Oxycodone Screen (NEGATIVE) Ur Propoxyphene Screen (NEGATIVE) Ur Barbituates Screen (NEGATIVE) Ur Tricyclics Screen (NEGATIVE) Ur Phencyclidine Scrn (NEGATIVE) Ur Amphetamine Screen (NEGATIVE) Urine MDMA Screen (NEGATIVE) U Benzodiazepines Scrn (NEGATIVE) U Cocaine Metab Screen (NEGATIVE) U Marijuana (THC) Screen (NEGATIVE) Ethyl Alcohol (<0.01) % 09/28/17 09/28/17 09/28/17 Range/Units 06:00 06:00 06:03 WBC (4.5-12.0) X10-3/uL RBC (4.30-5.75) x10(6)uL Hgb (11.5-15.5) g/dL Hct (30.0-51.3) % MCV (80-96) fL MCH (27.7-33.6) pg MCHC (32.2-35.4) g/dL RDW (11.5-15.5) % Plt Count (125-369) X10(3)uL MPV (7.4-10.4) fL Neut % (Auto) (46-82) % Lymph % (Auto) (13-37) % [place] % (Auto) (4-12) % Eos % (Auto) (1.0-5.0) % Baso % (Auto) (0-2) % Neut # (Auto) (1.6-8.3) # Lymph # (Auto) (0.6-5.0) # [place] # (Auto) (0.0-1.3) # Eos # (Auto) (0.0-0.8) # Baso # (Auto) (0.0-0.2) # ESR (0-15) mm/hr PT (8.7-11.1) INR (0.89-1.13) APTT 21.8 L (24.4-33.2) SECONDS ABG pH (7.35-7.45) ABG pCO2 (35-45) mmHg ABG pO2 (83-108) mmHg ABG HCO3 (22-26) mmol/L ABG O2 Saturation (96-97) % ABG Base Excess (-2-2) Bashir Test O2 Delivery Device Sodium (135-145) mmol/L Potassium 3.2 L (3.5-5.3) mmol/L Chloride (100-110) mmol/L Carbon Dioxide (23-29) mmol/L BUN (5-20) mg/dL Creatinine (0.6-1.3) mg/dL Est Cr Clr Drug Dosing mL/min Estimated GFR (MDRD) (>60) BUN/Creatinine Ratio (9-20) Glucose (80-116) mg/dL POC Glucose 151 H (80-116) mg/dL Hemoglobin A1c (4.0-6.0) % Calcium (8.6-10.2) mg/dL Phosphorus (3.0-4.6) mg/dL Magnesium (1.8-2.5) mg/dL Total Bilirubin (0.1-1.3) mg/dL AST (5-27) IU/L ALT (14-26) IU/L Alkaline Phosphatase (56-112) IU/L Creatine Kinase (60-160) IU/L CK-MB (CK-2) (0.2-5.0) ng/mL Troponin I (0.02-0.06) NG/ML C-Reactive Protein (0.0-1.0) mg/dL Total Protein (6.0-8.0) g/dL Albumin (3.5-5.2) g/dL Globulin g/dL Albumin/Globulin Ratio Amylase (28-100) U/L TSH, Ultra Sensitive (0.4-5.5) nlU/mL Urine Color (YELLOW) Urine Appearance (CLEAR) Urine pH (5.0-6.5) Ur Specific [place] (1.010-1.025) Urine Protein (NEGATIVE) mg/dL Urine Glucose (UA) (NEGATIVE) mg/dL Urine Ketones (NEGATIVE) mg/dL Urine Occult Blood (NEGATIVE) Urine Nitrite (NEGATIVE) Urine Bilirubin (NEGATIVE) Urine Urobilinogen (NEGATIVE) mg/dL Ur Leukocyte Esterase (NEGATIVE) Urine RBC (0) Urine WBC (0) Ur Squamous Epith Cells (NS,R,O) Urine Bacteria (NS) Urine Opiates Screen (NEGATIVE) Ur Oxycodone Screen (NEGATIVE) Ur Propoxyphene Screen (NEGATIVE) Ur Barbituates Screen (NEGATIVE) Ur Tricyclics Screen (NEGATIVE) Ur Phencyclidine Scrn (NEGATIVE) Ur Amphetamine Screen (NEGATIVE) Urine MDMA Screen (NEGATIVE) U Benzodiazepines Scrn (NEGATIVE) U Cocaine Metab Screen (NEGATIVE) U Marijuana (THC) Screen (NEGATIVE) Ethyl Alcohol (<0.01) % 09/28/17 09/28/17 09/28/17 Range/Units 06:47 07:58 08:00 WBC (4.5-12.0) X10-3/uL RBC (4.30-5.75) x10(6)uL Hgb (11.5-15.5) g/dL Hct (30.0-51.3) % MCV (80-96) fL MCH (27.7-33.6) pg MCHC (32.2-35.4) g/dL RDW (11.5-15.5) % Plt Count (125-369) X10(3)uL MPV (7.4-10.4) fL Neut % (Auto) (46-82) % Lymph % (Auto) (13-37) % [place] % (Auto) (4-12) % Eos % (Auto) (1.0-5.0) % Baso % (Auto) (0-2) % Neut # (Auto) (1.6-8.3) # Lymph # (Auto) (0.6-5.0) # [place] # (Auto) (0.0-1.3) # Eos # (Auto) (0.0-0.8) # Baso # (Auto) (0.0-0.2) # ESR (0-15) mm/hr PT (8.7-11.1) INR (0.89-1.13) APTT (24.4-33.2) SECONDS ABG pH (7.35-7.45) ABG pCO2 (35-45) mmHg ABG pO2 (83-108) mmHg ABG HCO3 (22-26) mmol/L ABG O2 Saturation (96-97) % ABG Base Excess (-2-2) Bashir Test O2 Delivery Device Sodium (135-145) mmol/L Potassium (3.5-5.3) mmol/L Chloride (100-110) mmol/L Carbon Dioxide (23-29) mmol/L BUN (5-20) mg/dL Creatinine (0.6-1.3) mg/dL Est Cr Clr Drug Dosing mL/min Estimated GFR (MDRD) (>60) BUN/Creatinine Ratio (9-20) Glucose (80-116) mg/dL POC Glucose 140 H 123 H (80-116) mg/dL Hemoglobin A1c (4.0-6.0) % Calcium (8.6-10.2) mg/dL Phosphorus 2.9 L (3.0-4.6) mg/dL Magnesium 1.7 L (1.8-2.5) mg/dL Total Bilirubin (0.1-1.3) mg/dL AST (5-27) IU/L ALT (14-26) IU/L Alkaline Phosphatase (56-112) IU/L Creatine Kinase (60-160) IU/L CK-MB (CK-2) (0.2-5.0) ng/mL Troponin I (0.02-0.06) NG/ML C-Reactive Protein (0.0-1.0) mg/dL Total Protein (6.0-8.0) g/dL Albumin (3.5-5.2) g/dL Globulin g/dL Albumin/Globulin Ratio Amylase (28-100) U/L TSH, Ultra Sensitive (0.4-5.5) nlU/mL Urine Color (YELLOW) Urine Appearance (CLEAR) Urine pH (5.0-6.5) Ur Specific [place] (1.010-1.025) Urine Protein (NEGATIVE) mg/dL Urine Glucose (UA) (NEGATIVE) mg/dL Urine Ketones (NEGATIVE) mg/dL Urine Occult Blood (NEGATIVE) Urine Nitrite (NEGATIVE) Urine Bilirubin (NEGATIVE) Urine Urobilinogen (NEGATIVE) mg/dL Ur Leukocyte Esterase (NEGATIVE) Urine RBC (0) Urine WBC (0) Ur Squamous Epith Cells (NS,R,O) Urine Bacteria (NS) Urine Opiates Screen (NEGATIVE) Ur Oxycodone Screen (NEGATIVE) Ur Propoxyphene Screen (NEGATIVE) Ur Barbituates Screen (NEGATIVE) Ur Tricyclics Screen (NEGATIVE) Ur Phencyclidine Scrn (NEGATIVE) Ur Amphetamine Screen (NEGATIVE) Urine MDMA Screen (NEGATIVE) U Benzodiazepines Scrn (NEGATIVE) U Cocaine Metab Screen (NEGATIVE) U Marijuana (THC) Screen (NEGATIVE) Ethyl Alcohol (<0.01) % 09/28/17 Range/Units 08:00 WBC (4.5-12.0) X10-3/uL RBC (4.30-5.75) x10(6)uL Hgb (11.5-15.5) g/dL Hct (30.0-51.3) % MCV (80-96) fL MCH (27.7-33.6) pg MCHC (32.2-35.4) g/dL RDW (11.5-15.5) % Plt Count (125-369) X10(3)uL MPV (7.4-10.4) fL Neut % (Auto) (46-82) % Lymph % (Auto) (13-37) % [place] % (Auto) (4-12) % Eos % (Auto) (1.0-5.0) % Baso % (Auto) (0-2) % Neut # (Auto) (1.6-8.3) # Lymph # (Auto) (0.6-5.0) # [place] # (Auto) (0.0-1.3) # Eos # (Auto) (0.0-0.8) # Baso # (Auto) (0.0-0.2) # ESR (0-15) mm/hr PT (8.7-11.1) INR (0.89-1.13) APTT (24.4-33.2) SECONDS ABG pH (7.35-7.45) ABG pCO2 (35-45) mmHg ABG pO2 (83-108) mmHg ABG HCO3 (22-26) mmol/L ABG O2 Saturation (96-97) % ABG Base Excess (-2-2) Bashir Test O2 Delivery Device Sodium 134 L (135-145) mmol/L Potassium 3.5 (3.5-5.3) mmol/L Chloride 100 (100-110) mmol/L Carbon Dioxide 27 (23-29) mmol/L BUN 10 (5-20) mg/dL Creatinine 0.7 (0.6-1.3) mg/dL Est Cr Clr Drug Dosing 122.51 mL/min Estimated GFR (MDRD) > 60 (>60) BUN/Creatinine Ratio 14.3 (9-20) Glucose 141 H (80-116) mg/dL POC Glucose (80-116) mg/dL Hemoglobin A1c (4.0-6.0) % Calcium 8.2 L (8.6-10.2) mg/dL Phosphorus (3.0-4.6) mg/dL Magnesium (1.8-2.5) mg/dL Total Bilirubin (0.1-1.3) mg/dL AST (5-27) IU/L ALT (14-26) IU/L Alkaline Phosphatase (56-112) IU/L Creatine Kinase (60-160) IU/L CK-MB (CK-2) (0.2-5.0) ng/mL Troponin I (0.02-0.06) NG/ML C-Reactive Protein (0.0-1.0) mg/dL Total Protein (6.0-8.0) g/dL Albumin (3.5-5.2) g/dL Globulin g/dL Albumin/Globulin Ratio Amylase (28-100) U/L TSH, Ultra Sensitive (0.4-5.5) nlU/mL Urine Color (YELLOW) Urine Appearance (CLEAR) Urine pH (5.0-6.5) Ur Specific [place] (1.010-1.025) Urine Protein (NEGATIVE) mg/dL Urine Glucose (UA) (NEGATIVE) mg/dL Urine Ketones (NEGATIVE) mg/dL Urine Occult Blood (NEGATIVE) Urine Nitrite (NEGATIVE) Urine Bilirubin (NEGATIVE) Urine Urobilinogen (NEGATIVE) mg/dL Ur Leukocyte Esterase (NEGATIVE) Urine RBC (0) Urine WBC (0) Ur Squamous Epith Cells (NS,R,O) Urine Bacteria (NS) Urine Opiates Screen (NEGATIVE) Ur Oxycodone Screen (NEGATIVE) Ur Propoxyphene Screen (NEGATIVE) Ur Barbituates Screen (NEGATIVE) Ur Tricyclics Screen (NEGATIVE) Ur Phencyclidine Scrn (NEGATIVE) Ur Amphetamine Screen (NEGATIVE) Urine MDMA Screen (NEGATIVE) U Benzodiazepines Scrn (NEGATIVE) U Cocaine Metab Screen (NEGATIVE) U Marijuana (THC) Screen (NEGATIVE) Ethyl Alcohol (<0.01) % Ferdinand Results Last 24 Hours: Microbiology 09/27/17 16:15 Stool Occult Blood (FERDINAND) - Final Stool / Feces NEGATIVE OCCULT BLOOD Med Orders - Current: Current Medications Amlodipine Besylate (Norvasc) 10 mg PO DAILY [facility] Last Admin: 09/27/17 14:31 Dose: 10 mg Carvedilol (Coreg) 3.125 mg PO BID [facility] Last Admin: 09/27/17 22:17 Dose: 3.125 mg Insulin Human Regular 100 unit (/ Sodium Chloride) 100 mls @ 5 mls/hr IV TITRATE RAFI; 0.0474 UNITS/KG/HR PRN Reason: Protocol Last Titration: 09/28/17 08:28 Dose: 0 units/kg/hr, 0 mls/hr Lactated Ringer's (Ringers, Lactated) 1,000 mls @ 125 mls/hr IV ASDIRECTED RAFI Last Admin: 09/28/17 03:03 Dose: 250 mls/hr Insulin Aspart (Novolog) 0 unit SUBCUT Q2H RAFI PRN Reason: Protocol Labetalol HCl (Normodyne) 10 mg IVPUSH Q10M PRN; Protocol PRN Reason: Hypertension Lorazepam (Ativan) 1 mg IV Q6H PRN PRN Reason: Anxiety Losartan Potassium (Cozaar) 50 mg PO DAILY RAFI Morphine Sulfate (Morphine) 4 mg IV Q10M PRN PRN Reason: Chest Pain Nitroglycerin (Nitrostat) 0.4 mg SL Q5M PRN PRN Reason: Chest Pain Pantoprazole Sodium (Protonix) 40 mg PO DAILY@0600 [facility] Potassium Chloride (Potassium Chloride Solution) 20 meq PO ASDIRECTED PRN PRN Reason: Hypokalemia Last Admin: 09/28/17 07:35 Dose: 20 meq Sodium Chloride (Saline Flush) 10 ml FLUSH ASDIRECTED PRN PRN Reason: Keep Vein Open Last Admin: 09/27/17 16:31 Dose: 10 ml Zolpidem Tartrate (Ambien) 5 mg PO BEDTIME PRN PRN Reason: Sleep Discontinued Medications Heparin Sodium (Porcine) (Heparin Sodium) 5,000 units IVPUSH .BOLUS ONE Stop: 09/27/17 16:06 Last Admin: 09/27/17 16:16 Dose: 5,000 units Lactated Ringer's (Ringers, Lactated) 1,000 mls @ 999 mls/hr IV .BOLUS RAFI Last Admin: 09/27/17 14:30 Dose: 999 mls/hr Lactated Ringer's (Ringers, Lactated) 1,000 mls @ 999 mls/hr IV ASDIRECTED RAFI Last Admin: 09/27/17 15:39 Dose: 999 mls/hr Heparin Sodium/Dextrose (Heparin 25,000 Units In D5w 500 Ml) 25,000 units in 500 mls @ 20.003 mls/hr IV TITRATE RAFI; 9.48 UNITS/KG/HR PRN Reason: Protocol Last Admin: 09/27/17 16:29 Dose: 9.48 units/kg/hr, 20.003 mls/hr Lactated Ringer's (Ringers, Lactated) 1,000 mls @ 500 mls/hr IV ASDIRECTED RAFI Stop: 09/27/17 18:44 Last Admin: 09/27/17 16:55 Dose: 500 mls/hr Insulin Aspart (Novolog) 5 unit SUBCUT ONETIME ONE Stop: 09/28/17 01:29 Last Admin: 09/28/17 01:51 Dose: 5 units Insulin Human Regular (Humulin R) 6 unit IV ONETIME ONE PRN Reason: Protocol Stop: 09/27/17 14:23 Last Admin: 09/27/17 14:40 Dose: 6 units Potassium Chloride (Potassium Chloride Solution) 20 meq PO NOW PRN PRN Reason: Hypokalemia Last Admin: 09/27/17 15:58 Dose: 20 meq - Exam General: Alert, Oriented HEENT: Pupils Equal, Pupils Reactive, EOMI, Mucous Membr. Moist/[place] Neck: Supple Lungs: Clear to Auscultation, Normal Respiratory Effort Cardiovascular: Regular Rate, Regular Rhythm GI/Abdominal Exam: Normal Bowel Sounds, Soft, Non-Tender, No Organomegaly, No Distention, No Abnormal Bruit, No Mass, Pelvis Stable (Male) Exam: No Hernia, Normal Inspection, Normal Prostate, Circumcised Back Exam: Normal Inspection, Full Range of Motion Extremities: Normal Inspection, Normal Range of Motion, Non-Tender, No Pedal Edema, Normal Capillary Refill Skin: Warm, Dry, Intact Wound/Incisions: Healing Well Neurological: No New Focal Deficit Psy/Mental Status: Alert, Normal Affect, Normal Mood - Problem List & Annotations (1) Hyperglycemia due to type 2 diabetes mellitus SNOMED Code(s): 521183960323854 Code(s): E11.65 - TYPE 2 DIABETES MELLITUS WITH HYPERGLYCEMIA Status: Acute Current Visit: Yes Qualifiers: Diabetes mellitus intermediate frame tender insulin use: unspecified intermediate frame tender insulin use status Qualified Code(s): E11.65 - Type 2 diabetes mellitus with hyperglycemia (2) HTN, goal below 130/80 SNOMED Code(s): 37442257 Code(s): I10 - ESSENTIAL (PRIMARY) HYPERTENSION Status: Acute Current Visit: Yes - Problem List Review Problem List Initiated/Reviewed/Updated: Yes - My Orders Last 24 Hours: My Active Orders 09/28/17 10:00 Insulin Aspart [NovoLOG] See Protocol SUBCUT Q2H - Plan Plan:: I have discontinued the insulin drip, in fibula sliding scale of short-acting insulin. I would also have education on him on how to use insulin and check his sugars. After the CT scan of the abdomen pelvis, my plan is to discharge him home today with close follow-up with his PCP. My feeling is that this is type 2 diabetes, with uncontrolled sugars that was worsened with recent steroid use.
[2017-09-28] MEDS ORDERED: Losartan 50 MG Tab PO SCH (09:00)
[2017-09-28] MEDS ORDERED: Pantoprazole 40 MG Tab.CR PO SCH (09:00)
[2017-09-28] MEDS ORDERED: Iopamidol 755 MG/ML 150 ML Bottle IV ONE (09:25)
[2017-09-28] MEDS: amLODIPine 10 MG Tab PO SCH (09:29)
[2017-09-28] MEDS ORDERED: Diatrizoate Meglumine/Diatrizoate Sodium 37% 30 ML Bottle PO SCH (09:30)
[2017-09-28] MEDS: Insulin Aspart 100 Units/ML 3 ML Pen SUBCUT SCH ×3 (10:11→14:15)
--- NOTE | 2017-09-28 10:45 | US ---
INDICATION: Jaundice/assess for ascites/pancreatic duct, history of hepatitis in the past. Elevated LFTs/bilirubin. RIGHT UPPER QUADRANT/GALLBLADDER ULTRASOUND: Multiple ultrasonic images were obtained 09/27/2017 and were compared with 08/10/2017 CT of the abdomen and pelvis. The liver is quite echogenic, compatible with severe diffuse fatty infiltration , although cirrhosis could also be present. Fatty infiltration of the liver was suggested on the CT scan from 08/10/2017 also. The common bile duct was not very well visualized. It appears to be at the upper limits of normal in size at approximately 6 mm. However, measurements up to 7.8 mm were suggested on the images. There was no dilatation of the hepatic ductal system intrahepatic in location. The previous CT did not show evidence of ductal dilatation. The pancreatic duct does not appear to be dilated, but the pancreas is not well seen. Portions of the abdominal aorta visualized were normal in caliber. The aorta was incompletely visualized, however. The right kidney measured 12.4 x 4 cm and appeared grossly normal. The IVC was not evaluated. The gallbladder measured 5.8 x 2.7 x 3.5 cm and showed no evidence of wall thickening, calculi, sludge, pericholecystic fluid, or positive ultrasonic Song sign. IMPRESSION: 1. Findings are compatible with severe fatty infiltration of the liver, but should be correlated clinically as to the possibility of additional cirrhosis. 2. Common bile duct may be at the upper limits of normal in size to slightly enlarged. This should be correlated clinically. MRCP would be of further diagnostic benefit, as felt to be clinically necessary - nuclear medicine hepatobiliary imaging may also be helpful in that regard. 3. Pancreas is not ideally visualized. No definite pancreatic ductal dilatation identified. 4. Negative ultrasonic Song sign/gallbladder appears normal. MTDD
--- NOTE | 2017-09-28 10:59 | CR ---
INDICATION: Acute inflammatory reaction. CHEST: PA and lateral views of the chest revealed the heart to be normal in size and shape. The aorta is somewhat tortuous. Bony structures appear to be grossly intact. Overlying EKG leads are noted. An active infiltrate or effusion was not identified. IMPRESSION: 1. No acute process. 2. ASD aorta. MTDD
--- NOTE | 2017-09-28 12:38 | CT ---
INDICATION: Inflammatory reaction/CHF/hepatitis-C/jaundice. 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 CT CHEST/ABDOMEN/PELVIS WITH CONTRAST: Spiral 2.5-mm axial sections were obtained through the abdomen and pelvis, as well as the chest, with oral and IV contrast (118 mL Isovue-370 at 3 mL per second) with sagittal and coronal reconstructions, 09/28/2017, and were compared with 08/10/2017. Findings were also compared with CT angiography of the chest dated 07/25/2017. Total Exam DLP = 1861.38 mGy-cm. CT CHEST: Examination of the chest by CT, 09/28/2017, was compared with 2016. What appears to be a linear atelectatic strand is noted in the right lower lobe , apical superior segment extending toward the hilum. An active infiltrate or effusion was not identified. A tiny probable granuloma is noted on axial image #86, unchanged from the previous study where it was visualized on axial image #169 in the basilar right lower lobe. A definite active infiltrate or effusion was not identified. The heart did not appear enlarged. Mediastinal lymphadenopathy is minimal and nonspecific. No mediastinal masses were identified. Minimal aortic calcifications are noted. Anterior bridging hyperostotic changes are noted at several lower thoracic levels, as previously. IMPRESSION: 1. No evidence of an acute process. 2. Degenerative changes lower thoracic spine. 3. Minimal ASD aorta. CT ABDOMEN AND PELVIS: Examination of the abdomen by CT was obtained 2016 and compared with 08/10/2017, again revealing diminished density of the liver, compatible with diffuse fatty infiltration. The liver appears slightly increased in size, compared with the previous examination. There also appears to be a relatively normal density portion of the right lower lobe, which is relatively small compared with the remainder of the fatty infiltrated liver. No definite focal liver lesions were identified, however. No gallstones were demonstrated. No intrahepatic ductal dilatation was seen. The common bile duct did not appear to be enlarged. It appears to measure approximately 4 mm. The pancreatic duct did not appear to be enlarged. The pancreas was slightly fatty replaced, but otherwise normal in appearance. The spleen appeared normal. There is again noted a small splenule in the hilum of the spleen. The adrenal glands and kidneys were unremarkable. What appears to be a lipoma in the upper middle anterior pelvis on the previous study, seen on axial image #132, is now seen on axial image #247, #248, and others, essentially unchanged. The prostate is slightly enlarged, measuring 41 x 34 mm in craniocaudad and anteroposterior diameters on the sagittal view and 34 x 50 mm on the transverse view. The urinary bladder appeared unremarkable. Evidence of previous surgery is noted in the anterior abdominal wall. No evidence of bowel obstruction was identified. The appendix was not visualized. No additional organomegaly, mass lesions, or free fluid collections were identified in the abdomen or pelvis. Minimal calcifications are noted in the aorta, iliac, and femoral arteries. No evidence of abdominal wall hernia is identified. IMPRESSION: 1. Diffuse fatty infiltration of the liver with an area of fatty sparing also seen in the right lobe. No focal liver lesion identified. 2. No ductal dilatation identified within the liver. Common bile duct did not appear enlarged. It appears to measure 4 mm. 3. Minimal ASD. 4. Previous anterior abdominal wall surgery at the level of the pelvis. 5. Mildly prominent prostate. CT PELVIS: Examination of the pelvis was obtained by CT as noted above, and revealed probable fatty lesion - lipoma in the anterior mid upper pelvis, essentially unchanged from the previous examination. No evidence of bowel obstruction was seen. Evidence of previous abdominal wall surgery in the area of the pelvis is noted. The prostate is slightly enlarged. Mild ASD is suggested. MTDD
[2017-09-28 14:30] VITALS: BP 124/74
--- NOTE | 2017-09-29 16:46 | DISCH ---
DISCHARGE DATE: 09/28/2017 REASON FOR ADMISSION: DKA. DISCHARGE DIAGNOSES: 1. Hyperglycemia. 2. Newly diagnosed type 2 diabetes. 3. Hypertension. 4. Rhabdomyolysis. BRIEF HISTORY AND HOSPITAL COURSE: This is a middle-age male who was admitted through the clinic because of hyperglycemia, sugars of 900, had anion gap of 17, bicarb 22, but pH was normal. Initially diagnosed with DKA and needed insulin drip to bring his sugars down. He did not complain of any vomiting, weakness, chest pain, or shortness of breath. He was noted to have a high CK and troponin initially which was negative. Chest x-ray and EKG were normal. Overnight, his sugars improved. He was able to be off the drip this morning and felt good and was discharged home on long-acting and mealtime insulin. A1c was 11.1. DISCHARGE MEDICATIONS: 1. Levemir 30 units at night. 2. NovoLog 5 units with every meal. 3. Metformin 500 mg p.o. b.i.d. FOLLOW UP: Follow up with [facility] on Sunday. Glucometer was given to the patient. He was taught on how to inject himself and check sugars. Basic diabetic education was provided. I spent more than 35 minutes in the discharge of this patient. /[id number] NELLI/ROSARIO
== END 2017-09-28 15:37 | disposition home or self-care (01) | DRG 638 ==
LOC: FB.ICU 13:18
PROVIDERS: ADMIT Family Medicine; ATTEND Family Medicine
DX: E11.10 Type 2 diabetes mellitus with ketoacidosis without coma (principal); M62.82 Rhabdomyolysis; E87.1 Hypo-osmolality and hyponatremia; Z79.4 Long term (current) use of insulin; E11.65 Type 2 diabetes mellitus with hyperglycemia; R74.8 Abnormal levels of other serum enzymes; I10 Essential (primary) hypertension; B18.2 Chronic viral hepatitis C; K74.60 Unspecified cirrhosis of liver; Z90.49 Acquired absence of other specified parts of digestive tract; Z87.891 Personal history of nicotine dependence; H54.7 Unspecified visual loss; Z79.52 Long term (current) use of systemic steroids
CPT/HCPCS: 36415; 36600; 71020; 71260; 74177; 76705; 80048; 80053; 80305; 81001; 82140; 82150; 82272; 82533; 82550; 82553; 82803; 82947; 82962; 83036; 83735; 84100; 84132; 84443; 84484; 85025; 85610; 85651; 85730; 86140; 87040; 87086; 93005; 93306; A9270-GY; G0480; J1644; J1815; J7050; J7120; Q9967

== ENCOUNTER 2017-12-26 07:34 | Day surgery (SDC) | payer MEDICAID ==
[2017-12-26] MEDS ORDERED: Lactated Ringers 1,000 ML IV SCH (07:45)
[2017-12-26] MEDS ORDERED: Midazolam 1 MG/ML 2 ML SDV IV ONE (09:00)
[2017-12-26] MEDS ORDERED: Propofol 200 MG/20 ML SDV IV ONE (09:00)
--- NOTE | 2017-12-26 09:29 | PCM.OPNOTE ---
- General Post-Op/Procedure Note Date of Surgery/Procedure: 12/26/17 Operative Procedure(s): c scope with bx Findings: rectal polyp Pre Op Diagnosis: hx of dysplastic colon polyps. and right hemicolectomy Post-Op Diagnosis: rectal polyp Anesthesia Technique: MAC Other Anesthesia Type: s Primary Surgeon: Joe Heck Anesthesia Provider: Lauren Chavez Pathology: rectal polyp Complications: None Condition: Good Free Text/Narrative:: see dictation
[2017-12-26 10:51] VITALS: BP 154/84
--- NOTE | 2017-12-26 15:42 | OR ---
DATE OF OPERATION: 12/26/2017 SURGEON: Joe Heck MD PROCEDURE PERFORMED: Colonoscopy. PREOPERATIVE DIAGNOSIS: History of dysplastic colon polyps, status post right hemicolectomy. POSTOPERATIVE DIAGNOSIS: Rectal polyp. INDICATIONS FOR PROCEDURE: This is a 57-year-old [place] male who has a history of dysplastic colon polyps and a year ago underwent a standard right hemicolectomy for high-grade dysplasia, presents now for followup scope. DESCRIPTION OF OPERATION: After an excellent IV sedation was administered, digital rectal exam was performed. No marked abnormality was noted. Flexible colonoscope was inserted and advanced to the ileocolic anastomosis without difficulty. The prep was excellent. The following findings were noted. Transverse colon unremarkable. The anastomosis itself was unremarkable. Descending colon unremarkable. Sigmoid unremarkable. Rectum just above the anal verge, a small 2 mm polyp, biopsied with cold biopsy forceps and submitted for permanent. The colon was deflated as the scope was removed. The patient tolerated the procedure well and was taken to the recovery room in good condition. Results by letter and followup scope on the basis of his results. /[id number] /MODL
== END 2017-12-26 11:00 | disposition home or self-care (01) ==
LOC: FB.SDS 07:34
PROVIDERS: ATTEND Surgery
DX: Z12.11 Encounter for screening for malignant neoplasm of colon (principal); K62.1 Rectal polyp; I10 Essential (primary) hypertension; E78.5 Hyperlipidemia, unspecified; E11.9 Type 2 diabetes mellitus without complications; Z86.010 Personal history of colon polyps; Z90.49 Acquired absence of other specified parts of digestive tract; Z88.8 Allergy status to other drugs, medicaments and biological substances; Z79.4 Long term (current) use of insulin; Z79.899 Other long term (current) drug therapy; Z87.891 Personal history of nicotine dependence
CPT/HCPCS: 45380; 82962; 88305; J2250; J2704; J7120

== ENCOUNTER 2022-09-28 12:25 | Inpatient (IN) | payer OTHER, MEDICAID ==
[2022-09-28] MEDS ORDERED: cefTRIAXone 1 GM in Sodium Chloride 0.9% 50 ML IV SCH (14:15)
[2022-09-28 14:28] LABS: ESTIMATED GFR 56 mL/min (>60)
[2022-09-28] MEDS ORDERED: Fluticasone NASAL Spray 16 GM Bottle NASBOTH PRN (14:36)
[2022-09-28] MEDS ORDERED: Acetaminophen 650 MG Tab.ER PO PRN (14:36)
[2022-09-28] MEDS ORDERED: Glucagon,Human Recombinant 1 MG Vial IM PRN (14:41)
[2022-09-28] MEDS ORDERED: 50% Dextrose in Water 50 ML Syringe IVPUSH PRN (14:41)
[2022-09-28] MEDS ORDERED: Benzonatate 100 MG Cap PO PRN (14:49)
[2022-09-28] MEDS: Sodium Chloride 0.9% 10 ML Syringe FLUSH PRN ×2 (15:10→15:16)
[2022-09-28] MEDS: cefTRIAXone 1 GM Vial IVPUSH SCH (15:14)
[2022-09-28] MEDS: Sodium Chloride 0.9% 1,000 ML IV SCH (15:25)
[2022-09-28] MEDS: Doxycycline 100 MG in Sodium Chloride 0.9% 100 ML IV SCH (15:30)
[2022-09-28] MEDS: Albuterol/Ipratropium 3.0-0.5 MG/3 ML Neb Soln NEB SCH ×2 (15:35→20:44)
[2022-09-28] MEDS: metFORMIN 500 MG Tab PO SCH (18:28)
[2022-09-28] MEDS ORDERED: Insulin Lispro 100 Unit/ML 3 ML KwikPen SUBCUT ONE (18:32)
[2022-09-28] MEDS: Insulin Lispro 100 Unit/ML 3 ML KwikPen SUBCUT SCH (18:33)
[2022-09-28] MEDS ORDERED: Insulin Glargine,Human Rec. Analog 100 Units/ML 3 ML Pen SUBCUT ONE (20:46)
[2022-09-28] MEDS: Budesonide 0.5 MG/2 ML Neb Susp INH SCH (20:50)
[2022-09-28] MEDS: Insulin Glargine,Human Rec. Analog 100 Units/ML 3 ML Pen SUBCUT SCH (20:50)
[2022-09-29] MEDS: Sodium Chloride 0.9% 1,000 ML IV SCH (02:08)
[2022-09-29] MEDS: Doxycycline 100 MG in Sodium Chloride 0.9% 100 ML IV SCH ×2 (02:08→15:04)
[2022-09-29] MEDS: Pantoprazole 40 MG Tab.CR PO SCH (05:47)
[2022-09-29] MEDS: Albuterol/Ipratropium 3.0-0.5 MG/3 ML Neb Soln NEB SCH ×4 (06:04→20:19)
[2022-09-29] MEDS: Budesonide 0.5 MG/2 ML Neb Susp INH SCH ×2 (06:05→20:20)
[2022-09-29 06:59] LABS: ESTIMATED GFR 75 mL/min (>60)
[2022-09-29] MEDS: Metoprolol Succinate 50 MG Tab.ER PO SCH (08:13)
[2022-09-29] MEDS: metFORMIN 500 MG Tab PO SCH ×2 (08:13→18:19)
[2022-09-29] MEDS: atorvaSTATin 20 MG Tab PO SCH (08:14)
[2022-09-29] MEDS: amLODIPine 10 MG Tab PO SCH (08:14)
[2022-09-29] MEDS: Aspirin 81 MG Tab.EC PO SCH (08:14)
[2022-09-29] MEDS: Losartan 100 MG Tab PO SCH (08:14)
[2022-09-29] MEDS: Montelukast 10 MG Tab PO SCH (08:15)
[2022-09-29] MEDS: Insulin Lispro 100 Unit/ML 3 ML KwikPen SUBCUT SCH ×3 (08:15→17:45)
[2022-09-29] MEDS: Insulin Glargine,Human Rec. Analog 100 Units/ML 3 ML Pen SUBCUT SCH ×2 (08:18→20:20)
[2022-09-29] MEDS ORDERED: Non-Formulary Medication 1 Each (Potassium Gluconate [Potassium Gluconate] 99 MG Tablet) PO SCH (09:00)
[2022-09-29] MEDS ORDERED: Ibuprofen 400 MG Tab PO PRN (11:30)
[2022-09-29] MEDS: cefTRIAXone 1 GM Vial IVPUSH SCH (13:37)
[2022-09-29] MEDS ORDERED: Doxycycline 100 MG Vial ONE (14:54)
[2022-09-30] MEDS: Sodium Chloride 0.9% 10 ML Syringe FLUSH PRN (03:39)
[2022-09-30] MEDS: Doxycycline 100 MG in Sodium Chloride 0.9% 100 ML IV SCH ×2 (03:39→14:30)
[2022-09-30] MEDS: Pantoprazole 40 MG Tab.CR PO SCH (05:37)
[2022-09-30] MEDS: Albuterol/Ipratropium 3.0-0.5 MG/3 ML Neb Soln NEB SCH ×4 (05:59→20:08)
[2022-09-30] MEDS: Budesonide 0.5 MG/2 ML Neb Susp INH SCH ×2 (06:02→20:10)
[2022-09-30 07:02] LABS: ESTIMATED GFR 85 mL/min (>60)
[2022-09-30] MEDS: Losartan 100 MG Tab PO SCH (08:29)
[2022-09-30] MEDS: metFORMIN 500 MG Tab PO SCH ×2 (08:29→18:21)
[2022-09-30] MEDS: Hydrochlorothiazide 12.5 MG Cap PO SCH (08:30)
[2022-09-30] MEDS: amLODIPine 10 MG Tab PO SCH (08:30)
[2022-09-30] MEDS: Aspirin 81 MG Tab.EC PO SCH (08:30)
[2022-09-30] MEDS: atorvaSTATin 20 MG Tab PO SCH (08:30)
[2022-09-30] MEDS: Montelukast 10 MG Tab PO SCH (08:30)
[2022-09-30] MEDS: Insulin Lispro 100 Unit/ML 3 ML KwikPen SUBCUT SCH ×3 (08:30→18:21)
[2022-09-30] MEDS: Metoprolol Succinate 50 MG Tab.ER PO SCH (08:31)
[2022-09-30] MEDS: Insulin Glargine,Human Rec. Analog 100 Units/ML 3 ML Pen SUBCUT SCH ×2 (08:32→20:11)
[2022-09-30] MEDS ORDERED: Hydrochlorothiazide 25 MG Tab PO SCH (09:01)
[2022-09-30] MEDS: Saccharomyces Boulardii (Probiotic) 250 MG Cap PO SCH ×2 (11:01→20:11)
[2022-09-30] MEDS: guaiFENesin 600 MG Tab.ER PO SCH ×2 (11:01→20:11)
[2022-09-30] MEDS: cefTRIAXone 1 GM Vial IVPUSH SCH (14:25)
[2022-10-01] MEDS: Doxycycline 100 MG in Sodium Chloride 0.9% 100 ML IV SCH ×2 (02:46→14:05)
[2022-10-01] MEDS: Sodium Chloride 0.9% 10 ML Syringe FLUSH PRN (04:44)
[2022-10-01] MEDS: Pantoprazole 40 MG Tab.CR PO SCH (05:42)
[2022-10-01] MEDS: Budesonide 0.5 MG/2 ML Neb Susp INH SCH ×2 (05:45→06:34)
[2022-10-01] MEDS: Albuterol/Ipratropium 3.0-0.5 MG/3 ML Neb Soln NEB SCH ×2 (06:00→11:26)
[2022-10-01 06:45] LABS: ESTIMATED GFR 96 mL/min (>60)
[2022-10-01] MEDS: Insulin Lispro 100 Unit/ML 3 ML KwikPen SUBCUT SCH ×2 (07:36→14:23)
[2022-10-01] MEDS: metFORMIN 500 MG Tab PO SCH (08:20)
[2022-10-01] MEDS: Losartan 100 MG Tab PO SCH (08:20)
[2022-10-01] MEDS: Saccharomyces Boulardii (Probiotic) 250 MG Cap PO SCH (08:20)
[2022-10-01] MEDS: Montelukast 10 MG Tab PO SCH (08:21)
[2022-10-01] MEDS: Aspirin 81 MG Tab.EC PO SCH (08:21)
[2022-10-01] MEDS: amLODIPine 10 MG Tab PO SCH (08:21)
[2022-10-01] MEDS: atorvaSTATin 20 MG Tab PO SCH (08:21)
[2022-10-01] MEDS: Metoprolol Succinate 50 MG Tab.ER PO SCH (08:21)
[2022-10-01] MEDS: guaiFENesin 600 MG Tab.ER PO SCH (08:21)
[2022-10-01] MEDS: Hydrochlorothiazide 12.5 MG Cap PO SCH (08:24)
[2022-10-01] MEDS: Insulin Glargine,Human Rec. Analog 100 Units/ML 3 ML Pen SUBCUT SCH (08:27)
[2022-10-01] MEDS ORDERED: Insulin Glargine,Human Rec. Analog 100 Units/ML 3 ML Pen SUBCUT ONE (08:29)
[2022-10-01] MEDS: cefTRIAXone 1 GM Vial IVPUSH SCH (13:58)
[2022-10-01 16:09] VITALS: BP 148/84; PULSE 74
== END 2022-10-01 15:24 | disposition home or self-care (01) | DRG 194 ==
LOC: FB.MS 12:25
PROVIDERS: ADMIT Family Medicine; ATTEND Family Medicine
DX: J18.9 Pneumonia, unspecified organism (principal); J44.0 Chronic obstructive pulmonary disease with (acute) lower respiratory infection; N17.9 Acute kidney failure, unspecified; K52.1 Toxic gastroenteritis and colitis; E11.65 Type 2 diabetes mellitus with hyperglycemia; E78.00 Pure hypercholesterolemia, unspecified; I10 Essential (primary) hypertension; T36.95XA Adverse effect of unspecified systemic antibiotic, initial encounter; Z90.49 Acquired absence of other specified parts of digestive tract; Z88.6 Allergy status to analgesic agent; Z79.4 Long term (current) use of insulin; Z79.82 Long term (current) use of aspirin; Z87.891 Personal history of nicotine dependence
CPT/HCPCS: 36415; 71046; 80048; 80053; 82947; 85025; 86140; 87040; 93005; 94150; 94640; 94669; A9270-GY; J0696; J1815; J1815-GY; J3490; J7030; J7620

== ENCOUNTER 2023-02-05 08:38 | Emergency (ER) | payer OTHER, MEDICAID ==
[2023-02-05] MEDS ORDERED: Sodium Chloride 0.9% 10 ML Syringe FLUSH PRN (08:52)
[2023-02-05 09:04] VITALS: BP 175/119; PULSE 61
[2023-02-05 09:10] LABS: ESTIMATED GFR 75 mL/min (>60)
[2023-02-05] MEDS ORDERED: Tenecteplase 50 MG Kit IV ONE (09:32)
== END 2023-02-05 09:45 ==
LOC: FB.ED 08:38
DX: I63.9 Cerebral infarction, unspecified (principal); J44.9 Chronic obstructive pulmonary disease, unspecified; I10 Essential (primary) hypertension; E11.9 Type 2 diabetes mellitus without complications; N17.9 Acute kidney failure, unspecified; Z88.6 Allergy status to analgesic agent; Z87.891 Personal history of nicotine dependence
CPT/HCPCS: 70450; 80053; 82947; 83735; 85025; 85610; 85651; 85730; 86140; 92977; 99291; J3101